=== PATIENT | female | born 1950 | race Caucasian/White ===

== ENCOUNTER 2019-10-26 23:06 | Observation (INO) | payer MEDICARE, MEDICAID, SELFPAY ==
--- NOTE | ~2019-10-26 | XR_ITS ---
EXAMINATION: XR chest 2V EXAM DATE: 10/26/2019 23:41 INDICATION: Chest discomfort, symptoms 1 day. TECHNIQUE: Frontal and lateral projections of the chest obtained and reviewed. Comparison is made to prior examination from 12/01/2018. FINDINGS: Mild hyperinflation. The lungs are clear. There are no pleural effusions. The cardiomedi astinal silhouette is within normal limits. There is no pneumothorax suspected. The bones and soft tissues are unremarkable. There is no significant interval change. IMPRESSION: No acute cardiopulmonary findings. Reviewed, dictated and finalized at location A.
--- NOTE | ~2019-10-26 | CT_ITS ---
EXAMINATION: CTA chest PE protocol DATE: 10/27/2019 11:37 INDICATION: Shortness of breath TECHNIQUE: Computed tomography angiography (CTA) of the chest was performed with 100 mL Omnipaque-350 intravenous contrast timed to evaluate the pulmonary arteries. Coronal maximum intensity projection 3D-reconstructions were created by the technologist. The dose-length product (DLP) was 172.44 mGy-cm. Automated exposure control and iterative reconstruction technique were employed. COMPARISON: 12/01/2018 FINDINGS: The pulmonary arteries are well-opacified. No pulmonary embolism is identified. There are subtle patchy airspace opacities of the right middle and lower lobes. No pleural effusion or pneumoth orax is identified. There has been near complete interval resolution of the previously described 8 mm left lower lobe nodule. No pathologically enlarged thoracic lymph nodes are identified. The heart si ze is normal. The gallbladder is surgically absent. There is moderate thoracic spondylosis. IMPRESSION: 1. No pulmonary embolism. 2. Subtle patchy opacities in the right middle and lower lobes, likely infectious or inflammatory. 3. Near complete interval resolution of the previously described left lower lobe nodule, likely resol ving infection or inflammation. Reviewed, dictated and finalized at location B. IMPRESSION: 1. No pulmonary embolism. 2. Subtle patchy opacities in the right middle and lower lobes, likely infectio us or inflammatory. 3. Near complete interval resolution of the previously described left lower lob e nodule, likely resolving infection or inflammation.
[2019-10-26 23:10] VITALS: BP 163/84; PULSE 68; RESP 20; TEMP 36.4; O2SAT 93
--- NOTE | 2019-10-26 23:13 | ECG_ITS ---
Measurements Intervals [place] Rate: 65 P: 70 [place]: 177 QRS: 69 QRSD: 83 T: 38 QT: 375 QTc: 390 Interpretive Statements SINUS RHYTHM BASELINE ARTIFACT- I, III, AVR, AVL, AVF, V1-V6 BORDERLINE ECG Electronically Signed On 10-27-2019 7:29:12 CDT by Marcos Cabrera D.O.
--- NOTE | 2019-10-26 23:16 | ED.SOB ---
HPI - SOB/Dyspnea General Chief Complaint: Shortness of Breath/Dyspnea Stated Complaint: Feels like something is stuck in chest Time Seen by Provider: 10/26/19 23:13 Source: patient Mode of arrival: EMS Limitations: no limitations History of Present Illness HPI Narrative: 69-year-old woman comes in today complaining of discomfort in her chest which started about 3 hours prior to admission. Patient states that her symptoms have improved somewhat. She states that she felt like she could take a breath in and then when she did she felt like there was something stuck in her chest. She has had no lightheadedness, rapid or irregular heartbeat, nausea, vomiting, sweating, fever, cough, cold symptoms, or leg swelling. Said that she had a similar episode a few weeks ago. Patient states that her doctor prescribed medication for dyslipidemia, diabetes, and COPD but she does not take them because she does not have those illnesses. She states that the diabetic medicines burned out her memory. CTA chest Nov 2018, April 2016, and Dec 2015 all negative for PE. MD elicited complaint: shortness of breath and pain with inspiration Pertinent past history: COPD and diabetes Onset (ago): hour(s) (3) Context: anxiety Timing: constant Severity: moderate Exacerbating factors: nothing Relieving factors: nothing Known history of: COPD and diabetes Associated symptoms: pain with inspiration Treatment prior to arrival: oxygen Related Data Home oxygen amount: none Home Medications Medication Instructions Recorded Confirmed albuterol sulfate 2 puff INHALATION PRN PRN 10/26/19 10/26/19 atorvastatin 20 mg PO DAILY 10/26/19 10/26/19 Allergies Allergy/AdvReac Type Severity Reaction Status Date / Time No Known Allergies Allergy Verified 10/26/19 23:18 Review of Systems Constitutional: Constitutional: Denies chills, Denies fever(s) and Denies weakness Eyes: Eyes: Denies change in vision and Denies photophobia ENT: Denies dysphagia, Denies nasal congestion and Denies sore throat Cardiovascular: Cardiovascular: Reports chest pain, Denies rapid heart rate, Denies radiating jaw, neck or arm pain and Denies slow heart rate Respiratory: Respiratory: Denies cough, Reports dyspnea and Denies wheezing Gastrointestinal: Gastrointestinal: Denies abdominal pain, Denies diarrhea, Denies nausea and Denies vomiting Genitourinary: Genitourinary: Denies nocturia and Denies dysuria Musculoskeletal: Musculoskeletal: Denies arthralgias and Denies joint swelling Integumentary/Breasts: Skin/Breast: Denies pruritus, Denies erythema and Denies rash Neurologic: Denies vertigo, Denies dizziness and Denies syncope Hematologic/Lymphatic: Hematologic/Lymphatic: Denies easy bleeding and Denies easy bruising Allergic/Immunologic: Allergic/Immunologic: Denies lip swelling and Denies wheezing [facility] Past Medical History Medical History (Updated 10/27/19 @ 00:44 by Porter Tripp MD) Atrial fibrillation CVA (cerebral vascular accident) Dyslipidemia H/O squamous cell carcinoma HTN (hypertension) Throat cancer Type 2 diabetes mellitus Surgical History Surgical History H/O: hysterectomy Hx of cholecystectomy Social History Social History Smoking status: Current every day smoker Substance use: never Living arrangements: alone Exam Const: General: healthy appearing, no acute distress and alert Orientation/consciousness: patient oriented x3 Limitations: no limitations HENMT: Head: normal to inspection Ears: external ears normal, TM's normal bilaterally and EAC's normal Face and sinus: normal facial exam Mouth: Yes moist mucous membranes Other: diffuse pharyngeal erythema without mass, exudate or lesion Eyes: Conjunctivae: conjunctivae normal Pupils: Equal, round and reactive pupils present EOM: EOMs intact bilaterally Resp: Eff
[2019-10-26 23:20] VITALS: PULSE 68
[2019-10-26 23:25] VITALS: PULSE 65; RESP 18
[2019-10-26] MEDS: ALBUTEROL SULFATE NEB 2.5 MG/3 ML INH INHALATION (23:33)
[2019-10-26 23:34] VITALS: PULSE 63; RESP 18
[2019-10-26 23:57] VITALS: BP 146/86; PULSE 81; RESP 16; O2SAT 96
[2019-10-27 00:10] LABS: Base Excess ABG -1.3 mmol/L (0-2); HCO3 ABG 22.3 mmol/L (23-29); Oxygen Content ABG 19.9 %vol (16.0-22.0); Oxygen Saturation ABG 98.3 % (95-97); Oxyhemoglobin 92.5 % (94-100); PCO2 ABG 34.5 mmHg (35-45); Total Hemoglobin 15.2 g/dL; pH ABG 7.43 (7.35-7.45)
[2019-10-27 00:14] LABS: Basophils Absolute Auto 0.07 K/mm3 (0.00-0.10); Device ROOM AIR; Eosinophils Absolute Auto 0.23 K/mm3 (0.02-0.50); Eosinophils Percent Auto 3.2 % (1.0-6.0); Hematocrit 23.8 % (35.0-42.0); Immature Granulocyte Absolute 0.01 K/mm3 (0.00-0.00); Immature Granulocyte Percent A 0.1 % (0.0-0.0); Lymphocytes Absolute Auto 2.91 K/mm3 (1.10-4.50); Mean Corpuscular HGB Conc 58.8 g/dL (32.0-36.0); Mean Corpuscular Volume 95.2 fL (78.0-102.0); Mean Platelet Volume 11.1 fl (9.2-11.8); Modified Allen's Test Pass; Monocytes Absolute Auto 0.46 K/mm3 (0.10-0.90); Monocytes Percent Auto 6.5 % (2.0-11.0); Neutrophils Absolute Auto 3.4 K/mm3 (1.7-7.2); Neutrophils Percent Auto 48.2 % (50.0-70.0); Platelet Count Result 192 K/mm3 (150-420); Red Cell Distribution Width 15.1 % (11.6-14.4); Site Drawn RIGHT BRACHIAL; White Blood Count 7.1 K/mm3 (4.8-10.8)
[2019-10-27 00:30] LABS: Add Urine Microscopic? NO; Appearance Urine Clear (Clear); Bilirubin Urine Negative (Negative); Blood Urine Negative (Negative); Color Urine Yellow (Yellow); Glucose Urine UA Negative (Negative); Ketones Urine Negative (Negative); Leukocyte Esterase Ur Negative LEU/UL (Negative); Nitrate Urine Negative (Negative); Protein Urine Negative (Negative); Urobilinogen Urine 0.2 mg/dL (0.2-1.0)
[2019-10-27 00:32] LABS: Alanine Aminotransferase 15 U/L (14-59); Albumin Level 3.5 g/dL (3.4-5.0); Alkaline Phosphatase 111 U/L (46-116); Anion Gap 7 mmol/L (8-16); Aspartate Amino Transferase 10 U/L (15-37); Bilirubin,Total 0.2 mg/dL (0.00-1.00); Blood Urea Nitrogen 12 mg/dL (7-18); Carbon Dioxide 27 mmol/L (21-32); Chloride 102 mmol/L (98-108); Estimated CRCL calculation 41 ml/min; Estimated Glomerular Filt Rate > 60; Glucose 128 mg/dL (70-99); Osmolality Calculated 283 mOsm/kg (285-295); Potassium 3.7 mmol/L (3.5-5.1); Sodium 136 mmol/L (136-145); Total Protein 7.2 g/dL (6.4-8.2)
[2019-10-27 00:33] LABS: D Dimer 1.22 mg/L (0.19-0.50); Troponin I < 0.02 ng/mL (0.00-0.056)
[2019-10-27 00:44] VITALS: BP 117/54; PULSE 61; RESP 20; O2SAT 91
[2019-10-27] MEDS: ASPIRIN 81 MG CHEWABLE TABLET 324 MG PO (00:50)
[2019-10-27 00:51] LABS: BNP < 5 pg/mL (0-100)
[2019-10-27 01:30] VITALS: BP 132/56; PULSE 58; RESP 18; TEMP 36.3; O2SAT 95
--- NOTE | 2019-10-27 01:30 | ADMGEN ---
This patient, Karla Lopez, was admitted to 2nd Floor Room 204-2. Patient oriented to hospital policies and general routines including ID bracelet, bed and alarms, visiting hours, pain management, procedures, bathroom and other care routines, personal items, smoking policy, room service/diet, and visiting hours. Valuables list jeans, t-shirt, yellow jacket, socks, shoes, purse, cell phone. Information on how to activate the Rapid Response Team has been discussed. Patient are encouraged to report perceived risks to care and to ask questions if they do not understand what they are told or what they should do.
[2019-10-27 01:32] VITALS: BMI 19.0
[2019-10-27 06:00] LABS: Alanine Aminotransferase 14 U/L (14-59); Albumin Level 3.1 g/dL (3.4-5.0); Alkaline Phosphatase 98 U/L (46-116); Anion Gap 1 mmol/L (8-16); Aspartate Amino Transferase 13 U/L (15-37); Bilirubin,Total 0.1 mg/dL (0.00-1.00); Blood Urea Nitrogen 8 mg/dL (7-18); Calcium 8.8 mg/dL (8.5-10.1); Carbon Dioxide 33 mmol/L (21-32); Chloride 105 mmol/L (98-108); Estimated CRCL calculation 40 ml/min; Estimated Glomerular Filt Rate > 60; Glucose 98 mg/dL (70-99); Osmolality Calculated 286 mOsm/kg (285-295); Potassium 4.7 mmol/L (3.5-5.1); Sodium 139 mmol/L (136-145); Total Protein 6.5 g/dL (6.4-8.2)
[2019-10-27 06:22] LABS: Basophils Absolute Auto 0.05 K/mm3 (0.00-0.10); Eosinophils Absolute Auto 0.18 K/mm3 (0.02-0.50); Eosinophils Percent Auto 3.6 % (1.0-6.0); Hematocrit 22.6 % (35.0-42.0); Hemoglobin 12.4 g/dL (11.7-13.8); Immature Granulocyte Absolute 0.04 K/mm3 (0.00-0.00); Immature Granulocyte Percent A 0.8 % (0.0-0.0); Lymphocytes Absolute Auto 1.55 K/mm3 (1.10-4.50); Lymphocytes Percent Auto 31.2 % (18.0-42.0); Mean Corpuscular HGB Conc 54.9 g/dL (32.0-36.0); Mean Corpuscular Hemoglobin 53.4 pg (27.0-31.0); Mean Corpuscular Volume 97.4 fL (78.0-102.0); Mean Platelet Volume 11.5 fl (9.2-11.8); Monocytes Absolute Auto 0.36 K/mm3 (0.10-0.90); Monocytes Percent Auto 7.2 % (2.0-11.0); Neutrophils Absolute Auto 2.8 K/mm3 (1.7-7.2); Neutrophils Percent Auto 56.2 % (50.0-70.0); Platelet Count Result 168 K/mm3 (150-420); Red Blood Count 2.32 M/mm3 (4.20-5.40); Red Cell Distribution Width 14.6 % (11.6-14.4)
[2019-10-27 06:41] LABS: Troponin I < 0.02 ng/mL (0.00-0.056)
[2019-10-27 08:00] VITALS: BP 119/66; PULSE 59; RESP 20; TEMP 36.9; O2SAT 95
[2019-10-27] MEDS: ENOXAPARIN 30 MG/0.3 ML SYRINGE SUB-Q (09:05)
[2019-10-27] MEDS: ATORVASTATIN 10 MG TABLET 20 MG PO (09:05)
[2019-10-27 09:24] LABS: Troponin I < 0.02 ng/mL (0.00-0.056)
--- NOTE | 2019-10-27 10:00 | PC.NURSE ---
PT RESTING IN BED. NO DISTRESS NOTED.
--- NOTE | 2019-10-27 10:50 | PC.NURSE ---
BAND SAW OPERATOR CAKE CUTTING SEEING PATIENT IN ROOM.
--- NOTE | 2019-10-27 11:25 | PC.NURSE ---
PT TO CT PER WC.
--- NOTE | 2019-10-27 11:50 | PC.NURSE ---
PT RETURNED TO ROOM PER WC. TO BED. HAS NO COMPLAINTS. REMINDED TO CALL WITH NEEDS.
--- NOTE | 2019-10-27 11:57 | PM.SD ---
Same Day Admit/Disch: HPI History of Present Illness Chief complaint: Feels like something is stuck in chest Narrative: Karla Lopez is a 69 year old female presented to the ED with complaints of chest discomfort and shortness of breath. Patient has a past medical history of A. fib, CVA, dyslipidemia, squamous cell carcinoma, hypertension, throat cancer, type 2 diabetes and COPD. According to the patient yesterday she was sitting at home on her couch and started feeling like her body was not getting enough oxygen with chest discomfort. Patient has been prescribed albuterol but states she does not need it because she does not have COPD. She is a current smoker. Patient blood gas indicated a respiratory alkalosis, her d-dimer was slightly elevated at 1.22, troponin negative x3, chest x-ray unremarkable, blood culture pending, EKG sinus rhythm with a heart rate of 65. Vital signs 132/56, 58, 18, 97.4, 95% on room air. Patient condition has improved since admission. The patient denies SOB, CP, palpitation, extremity numbness, lightheadedness, dizziness, constipation, diarrhea, chills, or fever. This patient agrees that she is ready for discharge and has agreed to follow-up with her primary care physician. [facility] Past Medical History Medical History (Updated 10/27/19 @ 13:38 by MARLEN Cortez) Atrial fibrillation CVA (cerebral vascular accident) Dyslipidemia H/O squamous cell carcinoma HTN (hypertension) Throat cancer Type 2 diabetes mellitus Surgical History Surgical History H/O: hysterectomy Hx of cholecystectomy Social History Social History Smoking packs per day: 1 Smoking cigarettes per day: 20.0 Years smoked: 41 Smoking pack-years: 41.00 Smoking status: Current every day smoker Tobacco type: cigarettes Second hand tobacco smoke exposure: No Alcohol intake: former Substance use: never Living arrangements: alone Gender identity (if verbalized by the patient): Female Sexual Orientation (if Verbalized by the Patient): Straight or Heterosexual Spiritual care concerns: No Same Day Admit/Disch: Med Pre-admit Medications Home Medications Medication Instructions Recorded Confirmed Type albuterol sulfate 2 puff INHALATION PRN PRN 10/26/19 10/26/19 History atorvastatin 20 mg PO DAILY 10/26/19 10/26/19 History Exam Narrative: Exam Narrative: GENERAL: This is a well-nourished, well-developed patient, in no apparent distress. HEAD: normocephalic, atraumatic. EYES: PERRL. Sclera clear/white. Vision is grossly intact. EARS: External ears normal, auditory canals clear and without drainage, TMs normal without perforation. Hearing grossly intact. NOSE: External nose normal with no obvious nasal discharge, nares without redness, no rhinorrhea. THROAT: Mucous membranes moist, posterior pharynx clear. NECK: Neck supple, non-tender without lymphadenopathy, masses or thyromegaly. CARDIOVASCULAR: Regular rate and irregular rhythm RESPIRATORY: Clear to auscultation. Breath sounds equal bilaterally. No wheezes, rales, or rhonchi. GASTROINTESTINAL: Abdomen soft, non-tender, nondistended. Bowel sounds are active. No hepato-splenomegaly, or palpable masses. No guarding. SKIN: warm, intact with no suspicious lesions or rash, good texture and turgor. NEURO: awake, alert, and oriented to person, place and time. There were no obvious focal neurologic abnormalities. Steady gait EXTREMITIES: Normal range of motion. No edema. No calf tenderness. Negative Homans sign bilaterally. BACK: Nontender without deformity or crepitance. No flank tenderness. [place] Coma Scale Eye Opening: Spontaneous 4 Adam Coma Scale Motor: Obeys Commands 6 DS: Data Data Completed and Pending Labs on day of discharge: Labs from last 24 hours 10/27/19 10/27/19 10/27/19 08:48 05:30 05:30 WBC RBC
--- NOTE | 2019-10-27 14:40 | PCDIET ---
DISCHARGE INSTRUCTIONS WITH SCRIPT GIVEN WRITTEN AND VERBALLY. PT STATES SHE UNDERSTANDS INSTRUCTIONS.
--- NOTE | 2019-10-27 14:45 | PC.NURSE ---
PT DISCHARGED TO HOME PER SELF. CHOSE TO WAIT OUTSIDE FOR HER DAUGHTER TO PICK HER UP IN STEAD OF WAITING IN HER ROOM. A&OX3, SKIN INTACT, REMINDED TO OBSERVE IV SITE FOR S/S OF INFECTION FOR 72 HOURS.
== END 2019-10-27 14:45 | disposition home or self-care (01) ==
LOC: CHSED 10-27 00:44 → CHS2ND 10-27 07:13
PROVIDERS: Admitting Provider Emergency Medicine; Emergency Provider Emergency Medicine; PCP Family Medicine; Visit Provider Emergency Medicine
DX: R07.1 Chest pain on breathing (principal); R06.02 Shortness of breath; I48.91 Unspecified atrial fibrillation; J44.9 Chronic obstructive pulmonary disease, unspecified; I10 Essential (primary) hypertension; E78.5 Hyperlipidemia, unspecified; E11.9 Type 2 diabetes mellitus without complications; F17.200 Nicotine dependence, unspecified, uncomplicated; Z86.73 Personal history of transient ischemic attack (TIA), and cerebral infarction without residual deficits; Z85.819 Personal history of malignant neoplasm of unspecified site of lip, oral cavity, and pharynx; Z91.14 Patient's other noncompliance with medication regimen
CPT/HCPCS: 36415; 36600; 71046; 71275; 80053; 81003; 82805; 83880; 84484; 85025; 85380; 85610; 85730; 87040; 93005; 94640; 96372; 99285; A9270; G0378; J1650; Q9965

== ENCOUNTER 2019-12-28 00:30 | Emergency (ER) | payer MEDICARE, SELFPAY ==
[2019-12-28 00:30] VITALS: BP 131/70; PULSE 70; RESP 20; TEMP 36.7; O2SAT 98
--- NOTE | 2019-12-28 00:56 | ED.URI ---
HPI - URI/Sore Throat General Chief Complaint: Upper Respiratory Infection Stated Complaint: Shortness of Breath Source: patient and RN notes reviewed Mode of arrival: ambulatory Limitations: no limitations History of Present Illness MD elicited complaint: sore throat Onset (ago): week(s) (2) Consistency: constant Severity: severe Able to tolerate fluids by mouth: Yes Exacerbating factors: swallowing Relieving factors: nothing Associated symptoms: denies other symptoms Treatments prior to arrival: none Related Data Home Medications Medication Instructions Recorded Confirmed albuterol sulfate 2 puff INHALATION DIRECTED PRN 12/28/19 12/28/19 atorvastatin 20 mg PO DAILY 12/28/19 12/28/19 Allergies Allergy/AdvReac Type Severity Reaction Status Date / Time No Known Allergies Allergy Verified 12/28/19 01:20 Review of Systems Review of Systems: All systems reviewed & are unremarkable except as noted in HPI and below PMFSH Past Medical History Medical History (Updated 12/28/19 @ 03:26 by Giovanni Lloyd MD) Hyperlipidemia Surgical History Surgical History (Updated 12/28/19 @ 00:58 by Giovanni Lloyd MD) History of throat surgery Social History Social History (Updated 12/28/19 @ 00:57 by Giovanni Lloyd MD) Smoking packs per day: 1 Smoking cigarettes per day: 20.0 Smoking status: Current every day smoker Tobacco type: cigarettes Alcohol intake: current Substance use: never Exam Const: General: healthy appearing and no acute distress Nutritional Appearance: well nourished and thin Orientation/consciousness: patient oriented x3 HENMT: Head: normal to inspection Ears: external ears normal General nose exam: Normal external nose present Face and sinus: normal facial exam Mouth: Yes tongue normal, Yes dry mucous membranes, Yes lip abnormal and Yes muffled voice (hoarse voice) Throat: uvula midline, posterior oropharynx abnormal no exudates, no lacerations and no foreign body and no uvular edema Eyes: Conjunctivae: conjunctivae normal Pupils: Equal, round and reactive pupils present EOM: EOMs intact bilaterally Neck: Neck: normal visual inspection and no lymphadenopathy Resp: Effort & Inspection: normal respiratory effort Auscultation: clear to auscultation bilaterally Cardio: Rate: regular rate Rhythm: regular rhythm GI: GI Palp: Yes Soft to palpation and No Tenderness to palpation present (GI) Auscultation: normal bowel sounds Back/Spine/Pelvis: Cervical Spine: cervical ROM normal Thoracic/Lumbar Spine: thoraco-lumbar ROM normal Skin: General skin exam: normal color Rashes: no rashes Neuro: General: patient oriented x3 and moves all extremities Speech: normal speech Gait exam (Neuro): Normal gait present Extrem: General: normal to inspection and no clubbing, cyanosis or edema Psych: Appearance: grossly normal and well kempt Mental Status: mental status grossly normal Affect: normal affect Attitude: cooperative Thought content: Yes Normal thought content present Course Course Emergency Course: Patient feels better after the Maalox. Vital Signs Vital signs: Vital Signs Temperature 36.7 C 12/28/19 00:30 Pulse Rate 70 12/28/19 00:30 Respiratory Rate 20 12/28/19 00:30 Blood Pressure 131/70 12/28/19 00:30 Pulse Oximetry 98 12/28/19 00:30 Temperature 36.5 C 12/28/19 03:30 Pulse Rate 84 12/28/19 03:30 Respiratory Rate 20 12/28/19 03:30 Blood Pressure 125/88 12/28/19 03:30 Pulse Oximetry 97 12/28/19 03:30 Discharge Plan Discharge Clinical Impression: Throat pain Patient Disposition: Home, Self-Care Condition: Stable Instructions: Pharyngitis (ED) Additional Instructions: Use Maalox [id number]. Follow-up the primary care physician to see if they want to take a closer look your throat. Recommend stop smoking Prescriptions: No Action atorvastatin 20 mg tablet 20 mg PO DAILY RF: 0 albuterol
--- NOTE | 2019-12-28 01:29 | PC.NURSE ---
Patient watching television, lights dimmed per patients request.
[2019-12-28] MEDS: MAG HYDROX/AL HYDROX/SIMETH 30 ML UDC PO (01:32)
--- NOTE | 2019-12-28 02:07 | PC.NURSE ---
0130 water given to pt. pt continuously attempting to clear throat. state has not seen dr ferraro who did tumor removal to throat in years. 0207pt resting per cot, no complaints voiced at this time. warm blanket given earlier.
--- NOTE | 2019-12-28 02:18 | PC.NURSE ---
pt no longer attempting to clear throat after medication given.
--- NOTE | 2019-12-28 02:34 | PC.NURSE ---
pt up and ambulated to bathroom without difficulty. pt dressed and requesting daughter to be called to go home. erp notified of same.
[2019-12-28 03:30] VITALS: BP 125/88; PULSE 84; RESP 20; TEMP 36.5; O2SAT 97
== END 2019-12-28 03:30 | disposition home or self-care (01) ==
PROVIDERS: Emergency Provider Emergency Medicine; PCP Family Medicine
DX: R07.0 Pain in throat (principal)
CPT/HCPCS: 99282; 99283; A9270

== ENCOUNTER 2020-02-11 20:13 | Emergency (ER) | payer MEDICARE, MEDICAID, SELFPAY ==
[2020-02-11] VITALS (19 sets, daily range): BP systolic 133–168; BP diastolic 59–79; PULSE 58–78; RESP 14–30; TEMP 37.1; O2SAT 95–100
--- NOTE | ~2020-02-11 | CT_ITS ---
EXAMINATION: CTA chest PE protocol EXAM DATE: 02/12/2020 00:18 INDICATION: D Dimer high, shortness of breath. TECHNIQUE: Spiral CTA of the chest (pulmonary arteries) was performed with 100 cc Omnipaque 350 intr avenous contrast injection. Images were acquired during the pulmonary arterial phase. Coronal maxi mum intensity projection 3D-reconstructions were created by the technologist on dedicated workstation . Axial, coronal and sagittal reformatted images were reviewed. The dose-length product (DLP) for t his examination was 124.35 mGy-cm. The exposure was tailored according to patient size (auto mA exp osure control), and iterative reconstruction (ASIR) was used as additional dose reduction technique. Comparison is made to prior examination from 10/27/2019. FINDINGS: Pulmonary arteries are well opacified and without intraluminal filling defects. No thora cic aortic dissection. There is mild emphysema and moderate hyperinflation. Small left lingular post infectious residua. There are no pleural or pericardial effusions. Tracheobronchial tree is patent . There is no mediastinal, hilar or axillary lymphadenopathy. There is no pneumothorax. Heart n ormal in size. There is mild coronary arterial calcification, arterial sclerosis. Upper abdomen is unremarkable. There is thoracic spondylosis without osteoblastic or osteolytic lesions identified. IMPRESSION: 1. No pulmonary emboli or acute cardiopulmonary findings. 2. Emphysema and hyperinflation. Reviewed, dictated and finalized at location A. RAL CARGO CLERK
--- NOTE | ~2020-02-11 | XR_ITS ---
EXAMINATION: XR chest 1V portable EXAM DATE: 02/11/2020 22:31 INDICATION: Shortness of breath, elevated d-dimer. TECHNIQUE: Portable AP frontal chest x-ray was obtained. Comparison is made to prior examination from 10/26/2019. FINDINGS: The lungs are clear. Moderate hyperinflation. There are no pleural effusions. The cardiome diastinal silhouette is within normal limits. There is no pneumothorax suspected. The bones and sof t tissues are unremarkable. IMPRESSION: 1. No acute cardiopulmonary findings. 2. Hyperinflation. Reviewed, dictated and finalized at location A. OMIST RESEARCH ASSISTANT
--- NOTE | 2020-02-11 21:55 | ECG_ITS ---
Measurements Intervals [place] Rate: 59 P: 77 [place]: 178 QRS: 67 QRSD: 87 T: 56 QT: 395 QTc: 393 Interpretive Statements SINUS BRADYCARDIA BASELINE WANDER- V3-V4 BORDERLINE ECG Electronically Signed On 02-12-2020 14:21:12 HEAVY DUTY PRESS OPERATOR by Marcos Cabrera D.O.
[2020-02-11] MEDS: methylPREDNISolone SOD SUCC 125 MG VIAL IV PUSH (22:58)
[2020-02-11] MEDS: ALBUTEROL SULFATE (*SP) INHALER 6 PUFF INHALATION (22:58)
[2020-02-11 23:00] LABS: Basophils Absolute Auto 0.05 K/mm3 (0.00-0.10); Basophils Percent Auto 0.8 % (0.0-1.0); Eosinophils Absolute Auto 0.13 K/mm3 (0.02-0.50); Eosinophils Percent Auto 2.2 % (1.0-6.0); Hematocrit 30.1 % (35.0-42.0); Hemoglobin 12.8 g/dL (11.7-13.8); Immature Granulocyte Absolute 0.02 K/mm3 (0.00-0.00); Immature Granulocyte Percent A 0.3 % (0.0-0.0); Lymphocytes Absolute Auto 1.75 K/mm3 (1.10-4.50); Lymphocytes Percent Auto 29.6 % (18.0-42.0); Mean Corpuscular HGB Conc 42.5 g/dL (32.0-36.0); Mean Corpuscular Volume 96.5 fL (78.0-102.0); Mean Platelet Volume 10.8 fl (9.2-11.8); Monocytes Absolute Auto 0.39 K/mm3 (0.10-0.90); Monocytes Percent Auto 6.6 % (2.0-11.0); Neutrophils Absolute Auto 3.6 K/mm3 (1.7-7.2); Neutrophils Percent Auto 60.5 % (50.0-70.0); Platelet Count Result 205 K/mm3 (150-420); Red Blood Count 3.12 M/mm3 (4.20-5.40); Red Cell Distribution Width 14.6 % (11.6-14.4); White Blood Count 5.9 K/mm3 (4.8-10.8)
--- NOTE | 2020-02-11 23:23 | ED.SOB ---
HPI - SOB/Dyspnea General Source: patient Mode of arrival: ambulatory Limitations: no limitations History of Present Illness HPI Narrative: Patient states she has been chronically short of breath for many months. This is moderately severe, ongoing, not relieved by measures taken at home. She has continued to smoke. MD elicited complaint: shortness of breath Pertinent past history: COPD Severity: moderate Exacerbating factors: exertion Relieving factors: nothing Known history of: COPD Associated symptoms: denies other symptoms Related Data Home oxygen amount: none Home Medications Medication Instructions Recorded Confirmed atorvastatin 20 mg PO DAILY 10/26/19 02/11/20 budesonide-formoterol [Symbicort] 2 puff INHALATION DAILY 02/11/20 02/11/20 Allergies Allergy/AdvReac Type Severity Reaction Status Date / Time No Known Allergies Allergy Verified 10/26/19 23:18 Review of Systems Constitutional: Constitutional: Reports no additional constitutional complaints Eyes: Eyes: Reports no additional eye complaints ENT: Reports system reviewed and no additional complaints, except as documented Cardiovascular: Cardiovascular: Reports no additional cardiovascular complaints Respiratory: Respiratory: Reports no additional respiratory complaints Gastrointestinal: Gastrointestinal: Reports no additional gastrointestinal complaints Genitourinary: Genitourinary: Reports no additional female genitourinary complaints Musculoskeletal: Musculoskeletal: Reports no additional musculoskeletal complaints Integumentary/Breasts: Skin/Breast: Reports system reviewed and no additional complaints, except as docu Neurologic: Reports system reviewed and no additional complaints, except as documented Psychiatric: Psychiatric: Reports no additional psychiatric complaints Endocrine: Endocrine: Reports no additional endocrine complaints Hematologic/Lymphatic: Hematologic/Lymphatic: Reports no additional hematologic/lymphatic complaints Allergic/Immunologic: Allergic/Immunologic: Reports no additional allergic/immunologic complaints [facility] Past Medical History Medical History Atrial fibrillation CVA (cerebral vascular accident) Dyslipidemia H/O squamous cell carcinoma HTN (hypertension) Throat cancer Type 2 diabetes mellitus Surgical History Surgical History H/O: hysterectomy Hx of cholecystectomy Social History Social History Smoking packs per day: 1 Smoking cigarettes per day: 20.0 Years smoked: 41 Smoking pack-years: 41.00 Smoking status: Current every day smoker Tobacco type: cigarettes Second hand tobacco smoke exposure: No Alcohol intake: former Substance use: never Gender identity (if verbalized by the patient): Female Spiritual care concerns: No Exam Const: General: no acute distress Nutritional Appearance: thin Orientation/consciousness: patient oriented x3 Other: She appears to have COPD HENMT: Head: normal to inspection Ears: TM's normal bilaterally General nose exam: Normal nares present Face and sinus: normal facial exam Mouth: Yes moist mucous membranes Throat: posterior oropharynx normal Eyes: Conjunctivae: conjunctivae normal Neck: Neck: normal visual inspection Chest: Chest palpation & inspection: normal inspection of the chest Resp: Effort & Inspection: normal respiratory effort Auscultation: diminished lung sounds Cardio: Rate: regular rate Rhythm: regular rhythm GI: GI Palp: Yes Soft to palpation Other: nontender Skin: General skin exam: normal color Neuro: General: patient oriented x3 Extrem: General: normal to inspection Psych: Mental Status: mental status grossly normal Course Course Emergency Course: Labs, CXR, EKG were all reviewed with the patient. She was discharged with a script for albuterol,
[2020-02-11 23:26] LABS: Alanine Aminotransferase 22 U/L (14-59); Albumin Level 3.4 g/dL (3.4-5.0); Alkaline Phosphatase 96 U/L (46-116); Anion Gap 0 mmol/L (8-16); Aspartate Amino Transferase 16 U/L (15-37); Bilirubin,Total 0.3 mg/dL (0.00-1.00); Blood Urea Nitrogen 4 mg/dL (7-18); Calcium 8.9 mg/dL (8.5-10.1); Carbon Dioxide 34 mmol/L (21-32); Chloride 101 mmol/L (98-108); Estimated CRCL calculation 43 ml/min; Estimated Glomerular Filt Rate > 60; Glucose 115 mg/dL (70-99); Osmolality Calculated 277 mOsm/kg (285-295); Potassium 5.6 mmol/L (3.5-5.1); Sodium 135 mmol/L (136-145); Total Protein 7.2 g/dL (6.4-8.2); Troponin I 9.6 ng/L (0.00-60.4)
[2020-02-11 23:30] LABS: D Dimer 1.44 mg/L (0.19-0.50)
[2020-02-11 23:53] LABS: BNP 14.5 pg/mL (0-100)
[2020-02-12 00:56] VITALS: O2SAT 98
[2020-02-12 00:57] VITALS: BP 156/73
[2020-02-12 00:59] VITALS: PULSE 62; RESP 20; O2SAT 98
== END 2020-02-12 01:09 | disposition home or self-care (01) ==
PROVIDERS: Emergency Provider Emergency Medicine; PCP Family Medicine
DX: J44.1 Chronic obstructive pulmonary disease with (acute) exacerbation (principal); I48.91 Unspecified atrial fibrillation; E78.5 Hyperlipidemia, unspecified; I10 Essential (primary) hypertension; E11.9 Type 2 diabetes mellitus without complications; F17.200 Nicotine dependence, unspecified, uncomplicated
CPT/HCPCS: 36415; 71045; 71275; 80053; 83880; 84484; 85025; 85380; 93005; 96374; 99283; 99284; A9270; J2930; Q9965; Q9967

== ENCOUNTER 2020-11-03 10:50 | Outpatient (CLI) | payer MEDICARE, MEDICAID, SELFPAY ==
[2020-11-03 11:23] LABS: Hemoglobin A1C 6.4 % (<5.7)
[2020-11-07 07:33] LABS: Cortisol Random 12.9 mcg/dL (***)
== END 2020-11-03 10:51 | disposition home or self-care (01) ==
PROVIDERS: PCP Family Medicine; Visit Provider Internal Medicine Hematology & Oncology
DX: C32.9 Malignant neoplasm of larynx, unspecified (principal); E11.9 Type 2 diabetes mellitus without complications
CPT/HCPCS: 36415; 82533; 83036

== ENCOUNTER 2020-11-24 12:10 | Outpatient (CLI) | payer MEDICARE, SELFPAY ==
[2020-11-24 13:05] LABS: Basophils Absolute Auto 0.04 K/mm3 (0.00-0.10); Basophils Percent Auto 0.6 % (0.0-1.0); Eosinophils Absolute Auto 0.15 K/mm3 (0.02-0.50); Eosinophils Percent Auto 2.4 % (1.0-6.0); Hematocrit 35.8 % (35.0-42.0); Hemoglobin 12.2 g/dL (11.7-13.8); Immature Granulocyte Absolute 0.06 K/mm3 (0.00-0.00); Lymphocytes Absolute Auto 1.63 K/mm3 (1.10-4.50); Lymphocytes Percent Auto 26.3 % (18.0-42.0); Mean Corpuscular HGB Conc 34.1 g/dL (32.0-36.0); Mean Corpuscular Hemoglobin 29.3 pg (27.0-31.0); Mean Corpuscular Volume 86.1 fL (78.0-102.0); Mean Platelet Volume 10.4 fl (9.2-11.8); Monocytes Percent Auto 6.5 % (2.0-11.0); Neutrophils Absolute Auto 3.9 K/mm3 (1.7-7.2); Neutrophils Percent Auto 63.2 % (50.0-70.0); Platelet Count Result 266 K/mm3 (150-420); Red Blood Count 4.16 M/mm3 (4.20-5.40); Red Cell Distribution Width 18.6 % (11.6-14.4); White Blood Count 6.2 K/mm3 (4.8-10.8)
[2020-11-24 13:08] LABS: Alanine Aminotransferase 15 U/L (14-59); Alkaline Phosphatase 114 U/L (46-116); Anion Gap 8 mmol/L (8-16); Aspartate Amino Transferase 10 U/L (15-37); Bilirubin,Total 0.2 mg/dL (0.00-1.00); Blood Urea Nitrogen 6 mg/dL (7-18); Calcium 8.8 mg/dL (8.5-10.1); Carbon Dioxide 31 mmol/L (21-32); Chloride 103 mmol/L (98-108); Estimated Glomerular Filt Rate 59; Glucose 186 mg/dL (70-99); Osmolality Calculated 296 mOsm/kg (285-295); Potassium 3.7 mmol/L (3.5-5.1); Sodium 142 mmol/L (136-145); Thyroid Stimulating Hormone 2.23 uIU/mL (0.36-3.74); Total Protein 6.7 g/dL (6.4-8.2)
== END 2020-11-24 12:11 | disposition home or self-care (01) ==
LOC: CHSLAB 12:11
PROVIDERS: PCP Family Medicine; Visit Provider Internal Medicine Hematology & Oncology
DX: C32.9 Malignant neoplasm of larynx, unspecified (principal); E11.9 Type 2 diabetes mellitus without complications
CPT/HCPCS: 36415; 80053; 82533; 84443; 85025

== ENCOUNTER 2020-11-27 13:11 | Outpatient (CLI) | payer MEDICARE, SELFPAY ==
[2020-11-27 13:32] VITALS: BP 130/68; PULSE 80; RESP 14; TEMP 36.2; O2SAT 97
[2020-11-27 13:33] VITALS: BMI 19.5
--- NOTE | 2020-11-27 14:19 | PC.NURSE ---
Patient here for cycle 1 every 4 weeks Opdivo chemo therapy. Education on medication given verbally and written. Patient has palliative care specialist with her for support person. Labs reviewed from 11/24/20 and ok'd. Opdivo administered via patent port See MAR. Tolerated well. Safe exit of hospital will return 2020 1330 for next.
[2020-11-27] MEDS: HEPARIN SODIUM LOCK FLUSH 500 UNITS/5 ML SYRINGE IV PUSH (14:24)
[2020-11-27 14:37] VITALS: BP 128/61; PULSE 68; RESP 14; O2SAT 96
== END 2020-11-27 13:12 | disposition home or self-care (01) ==
LOC: CHSTREATRM 13:12
PROVIDERS: PCP Family Medicine; Visit Provider Internal Medicine Hematology & Oncology
DX: Z51.11 Encounter for antineoplastic chemotherapy (principal); C32.9 Malignant neoplasm of larynx, unspecified
CPT/HCPCS: 96413; J9299

== ENCOUNTER 2020-12-01 14:23 | Outpatient (CLI) | payer MEDICARE, SELFPAY ==
--- NOTE | ~2020-12-01 | XR_ITS ---
EXAMINATION: XR shoulder LT min 2V DATE: 12/01/2020 14:50 INDICATION: Left shoulder pain TECHNIQUE: AP internally and externally rotated, AP oblique externally rotated and transscapular Y vi ews of the left shoulder were obtained. COMPARISON: None FINDINGS: Normal alignment. There is a subtle nondisplaced intra-articular fracture of the left humeral head wi th linear lucency extending to a 1 mm fracture gap at the articular cortex at the posterior aspect of the humeral head on the transscapular Y view and 1 mm step-off at the medial cortex on the Grashey v iew. The Grashey view there is suggestion of underlying lytic lesion which raises concern for maligna ncy and pathologic fracture. Mild left glenohumeral osteoarthritis. Mild acromioclavicular osteoarthr itis. Visualized portions of the lungs are clear. Tip of a right internal jugular central venous cath eter near the superior cavoatrial junction. IMPRESSION: Nondisplaced intra-articular fracture involving the posterior medial aspect of the left humeral head. Suggestion of a possible underlying lytic lesion raising concern for pathologic fracture. Correlate for clinical history of malignancy and could consider further evaluation with contrast-enhanced MRI a s clinically indicated. Reviewed, dictated and finalized at location A. IMPRESSION: Nondisplaced intra-articular fracture involving the posterior medial aspect of the left humeral head. Suggestion of a possible underlying lytic lesion raising concern for pathologic fracture. Correlate for clinical history of malignancy and could consider further evaluation with contrast-enhanced MRI as clinically indicated.
--- NOTE | ~2020-12-01 | XR_ITS ---
EXAMINATION: XR elbow LT min 3V DATE: 12/01/2020 14:50 INDICATION: Left elbow pain TECHNIQUE: Anteroposterior, two oblique and lateral views of the left elbow were obtained. COMPARISON: None. FINDINGS: Alignment is normal at the left elbow. No fracture or joint effusion. Mild osteoarthritis involving a ll 3 compartments of the left elbow with mild nonuniform joint space narrowing and small marginal ost eophytes. Soft tissues are unremarkable. IMPRESSION: 1. Mild osteoarthritis of the left elbow. No joint effusion or acute osseous abnormality. Reviewed, dictated and finalized at location A. IMPRESSION: 1. Mild osteoarthritis of the left elbow. No joint effusion or acute osseous ab normality.
== END 2020-12-01 14:24 | disposition home or self-care (01) ==
PROVIDERS: PCP Family Medicine; Visit Provider Physician Assistant
DX: M25.512 Pain in left shoulder (principal); M25.522 Pain in left elbow
CPT/HCPCS: 73030; 73080

== ENCOUNTER 2020-12-22 11:01 | Outpatient (CLI) | payer MEDICARE, SELFPAY ==
[2020-12-22 11:38] LABS: Hemoglobin A1C 6.4 % (<5.7)
[2020-12-22 11:47] LABS: Basophils Absolute Auto 0.06 K/mm3 (0.00-0.10); Basophils Percent Auto 1.4 % (0.0-1.0); Eosinophils Absolute Auto 0.27 K/mm3 (0.02-0.50); Eosinophils Percent Auto 6.1 % (1.0-6.0); Hemoglobin 12.6 g/dL (11.7-13.8); Immature Granulocyte Absolute 0.01 K/mm3 (0.00-0.00); Immature Granulocyte Percent A 0.2 % (0.0-0.0); Lymphocytes Absolute Auto 1.56 K/mm3 (1.10-4.50); Lymphocytes Percent Auto 35.1 % (18.0-42.0); Mean Corpuscular HGB Conc 32.3 g/dL (32.0-36.0); Mean Corpuscular Volume 80.6 fL (78.0-102.0); Neutrophils Absolute Auto 2.1 K/mm3 (1.7-7.2); Neutrophils Percent Auto 48.2 % (50.0-70.0); Platelet Count Result 285 K/mm3 (150-420); Red Blood Count 4.84 M/mm3 (4.20-5.40); White Blood Count 4.4 K/mm3 (4.8-10.8)
[2020-12-22 12:33] LABS: Alanine Aminotransferase 17 U/L (14-59); Albumin Level 3.6 g/dL (3.4-5.0); Alkaline Phosphatase 151 U/L (46-116); Anion Gap 6 mmol/L (8-16); Aspartate Amino Transferase 14 U/L (15-37); Bilirubin,Total 0.3 mg/dL (0.00-1.00); Blood Urea Nitrogen 5 mg/dL (7-18); Calcium 9.3 mg/dL (8.5-10.1); Carbon Dioxide 31 mmol/L (21-32); Chloride 103 mmol/L (98-108); Estimated Glomerular Filt Rate > 60; Glucose 103 mg/dL (70-99); Osmolality Calculated 287 mOsm/kg (285-295); Potassium 5.5 mmol/L (3.5-5.1); Sodium 140 mmol/L (136-145)
[2020-12-26 07:28] LABS: Cortisol Random 10.1 mcg/dL (***)
== END 2020-12-22 11:02 | disposition home or self-care (01) ==
LOC: CHSLAB 11:04
PROVIDERS: PCP Family Medicine; Visit Provider Internal Medicine Hematology & Oncology
DX: C32.9 Malignant neoplasm of larynx, unspecified (principal); R73.09 Other abnormal glucose
CPT/HCPCS: 36415; 80053; 82533; 83036; 85025

== ENCOUNTER 2020-12-25 13:34 | Outpatient (CLI) | payer MEDICARE, SELFPAY ==
[2020-12-25 13:44] VITALS: BMI 20.7
--- NOTE | 2020-12-25 13:45 | PC.NURSE ---
[facility], accompanied by friend. A&Ox3. 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 Pt able to communicate via white board. Oriented to room. Call smith in reach. Reminded to call with needs.
[2020-12-25 13:53] VITALS: BP 184/71; PULSE 64; RESP 20; TEMP 36.6; O2SAT 94
--- NOTE | 2020-12-25 14:44 | PC.NURSE ---
Opdivo infused as ordered. Pt tolerated well. Has no complaints. Port flushed and de accessed per protocol. Pt discharged to home amb with friend.
== END 2020-12-25 13:35 | disposition home or self-care (01) ==
PROVIDERS: PCP Family Medicine; Visit Provider Internal Medicine Hematology & Oncology
DX: Z51.11 Encounter for antineoplastic chemotherapy (principal); C32.9 Malignant neoplasm of larynx, unspecified
CPT/HCPCS: 96413; J9299

== ENCOUNTER 2021-01-19 12:23 | Outpatient (CLI) | payer MEDICARE, SELFPAY ==
[2021-01-19 13:19] LABS: Basophils Absolute Auto 0.04 K/mm3 (0.00-0.10); Basophils Percent Auto 0.9 % (0.0-1.0); Eosinophils Absolute Auto 0.24 K/mm3 (0.02-0.50); Eosinophils Percent Auto 5.7 % (1.0-6.0); Hematocrit 37.2 % (35.0-42.0); Hemoglobin 12.3 g/dL (11.7-13.8); Immature Granulocyte Absolute 0.01 K/mm3 (0.00-0.00); Immature Granulocyte Percent A 0.2 % (0.0-0.0); Lymphocytes Absolute Auto 1.23 K/mm3 (1.10-4.50); Lymphocytes Percent Auto 29.1 % (18.0-42.0); Mean Corpuscular HGB Conc 33.1 g/dL (32.0-36.0); Mean Corpuscular Hemoglobin 28.1 pg (27.0-31.0); Mean Corpuscular Volume 85.1 fL (78.0-102.0); Mean Platelet Volume 10.8 fl (9.2-11.8); Monocytes Absolute Auto 0.38 K/mm3 (0.10-0.90); Neutrophils Absolute Auto 2.3 K/mm3 (1.7-7.2); Neutrophils Percent Auto 55.1 % (50.0-70.0); Platelet Count Result 279 K/mm3 (150-420); Red Blood Count 4.37 M/mm3 (4.20-5.40); Red Cell Distribution Width 15.6 % (11.6-14.4); White Blood Count 4.2 K/mm3 (4.8-10.8)
[2021-01-19 14:01] LABS: Alanine Aminotransferase 15 U/L (14-59); Albumin Level 3.2 g/dL (3.4-5.0); Alkaline Phosphatase 127 U/L (46-116); Anion Gap 7 mmol/L (8-16); Aspartate Amino Transferase 12 U/L (15-37); Bilirubin,Total 0.2 mg/dL (0.00-1.00); Blood Urea Nitrogen 6 mg/dL (7-18); Calcium 8.8 mg/dL (8.5-10.1); Carbon Dioxide 31 mmol/L (21-32); Chloride 103 mmol/L (98-108); Estimated Glomerular Filt Rate > 60; Glucose 123 mg/dL (70-99); Osmolality Calculated 290 mOsm/kg (285-295); Potassium 5.2 mmol/L (3.5-5.1); Sodium 141 mmol/L (136-145); Total Protein 6.7 g/dL (6.4-8.2)
[2021-01-19 14:03] LABS: Free T4 Free Thyroxine Reflex 1.01 ng/dL (0.76-1.46); Thyroid Stimulating Hormone Reflex 0.03 u/IU/mL (0.36-3.74)
[2021-01-23 12:53] LABS: Cortisol Random 8.5 mcg/dL (***)
== END 2021-01-19 12:24 | disposition home or self-care (01) ==
PROVIDERS: PCP Family Medicine; Visit Provider Internal Medicine Hematology & Oncology
DX: C32.9 Malignant neoplasm of larynx, unspecified (principal); Z79.899 Other long term (current) drug therapy
CPT/HCPCS: 36415; 80053; 82533; 84439; 84443; 85025

== ENCOUNTER 2021-01-22 13:21 | Outpatient (CLI) | payer MEDICARE, SELFPAY ==
[2021-01-22 13:36] VITALS: BMI 20.7
[2021-01-22 13:38] VITALS: BP 132/70; PULSE 78; RESP 14; TEMP 36.6; O2SAT 96
--- NOTE | 2021-01-22 14:35 | PC.NURSE ---
Patient here for Cycle 3 chemo Nivolumab. No concerns voiced. Reports been doing ok. Education on chemo regimen given. IV Nivolumab administered via patent port. Tolerated well. Safe exit of hospital. Will return Feb.[id number] for cycle 4 if ordered.
== END 2021-01-22 13:22 | disposition home or self-care (01) ==
PROVIDERS: PCP Family Medicine; Visit Provider Internal Medicine Hematology & Oncology
DX: Z51.11 Encounter for antineoplastic chemotherapy (principal); C32.9 Malignant neoplasm of larynx, unspecified
CPT/HCPCS: 96413; J9299

== ENCOUNTER 2021-02-23 13:24 | Outpatient (CLI) | payer MEDICARE, MEDICAID, SELFPAY ==
[2021-02-23 13:43] VITALS: BP 130/71; PULSE 80; RESP 14; TEMP 36.6; O2SAT 97; BMI 20.2
[2021-02-23 14:26] VITALS: BP 128/74; PULSE 68; RESP 16; TEMP 36.4; O2SAT 97
--- NOTE | 2021-02-23 14:28 | PC.NURSE ---
Patient here for # 4 monthly Opdivo IV chemo. Medications reviewed with patient. No concerns. IV Opdivo administered via patent port a cath. Tolerated well. Safe exit of hospital. Will return Mar 23, 2021 at 1300 for #5.
== END 2021-02-23 13:25 | disposition home or self-care (01) ==
LOC: CHSTREATRM 13:28
PROVIDERS: PCP Family Medicine; Visit Provider Internal Medicine Hematology & Oncology
DX: Z51.11 Encounter for antineoplastic chemotherapy (principal); C32.9 Malignant neoplasm of larynx, unspecified
CPT/HCPCS: 96413; J9299

== ENCOUNTER 2024-03-24 22:37 | Emergency (ER) | payer MEDICARE, MEDICAID, SELFPAY ==
--- NOTE | ~2024-03-24 | CT_ITS ---
Clinical Indication: Epigastric pain CT Scan of the Chest, Abdomen, and Pelvis with Contrast: Technique: Contiguous sections were acquired throughout the chest, abdomen, and pelvis after intraven ous administration of 100 cc of Omnipaque 350. Dose reduction technique was used on this scan by tiarra parra automated exposure control and iterative reconstruction technique. The dose-length product (DL P) was 722.59 mGy-cm. Findings: There is no evidence of any significant mediastinal, hilar or axillary lymphadenopathy. The mediastin al soft tissues and vascular structures appear normal. Tracheostomy cannula in place. There is no evidence of pleural or pericardial effusion. There are a few focal peripheral groundglass opacities, for example anterior left upper lobe and the peripheral right lung base. There is diffuse hepatic steatosis. Cholecystectomy clips are present. The spleen, pancreas, adrenals and kidneys are within normal limits. There are atherosclerotic calcifications of the aorta. No lym phadenopathy. No bowel obstruction or bowel wall thickening. There is no evidence to suggest acute appendicitis. Urinary bladder is unremarkable. No pelvic mass seen. Status post hysterectomy. No ascites. There is mild chronic L1 compression deformity. Impression: A few focal peripheral groundglass opacity lungs could reflect atelectatic change versus areas of foc al pneumonitis. Correlate clinically. Diffuse hepatic steatosis. Reviewed, dictated and finalized at [facility]. MACHINIST Impression: A few focal peripheral groundglass opacity lungs could reflect atelectatic lyn ge versus areas of focal pneumonitis. Correlate clinically. Diffuse hepatic steatosis.
[2024-03-24 22:37] VITALS: PULSE 81; O2SAT 100
--- OUTSIDE RECORDS SUMMARY | 2024-03-24 22:40 | XMS_ITS | Clinical Summary ---
Author Organization [facility] Address [address] [place] [address] Care Team Providers Care Information Analyst Name Role Phone Brandt Rosas MD Unavailable [phone] Jayson Lake MD Primary Care Provider [phone] Allergies No known active allergies Medications albuterol (2.5 MG/3ML) 0.083% nebulizer solution 1 Active albuterol sulfate HFA 108 (90 Base) MCG/ACT inhaler Inhale 1 puff into the lungs every 6 (six) hours as needed for Wheezing. Active mirtazapine 15 MG tablet Take 1 tablet (15 mg total) by mouth daily. 1 Active atorvastatin (LIPITOR) 20 MG tablet Take 1 tablet (20 mg total) by mouth daily. 4 Active levothyroxine (SYNTHROID) 125 MCG tablet Take 1 tablet (125 mcg total) by mouth. 4 Active omeprazole (PRILOSEC) 20 MG capsule Take 1 capsule (20 mg total) by mouth daily. 4 Active amoxicillin-cla vulanate (AUGMENTIN) 875-125 MG tablet Take 1 tablet (875 mg total) by mouth every 12 (twelve) hours for 10 days. 20 tablet 5 025 Active predniSONE (DELTASONE) 20 MG tablet Take 2 tablets (40 mg total) by mouth daily for 10 days. 20 tablet 5 025 Active traMADol (ULTRAM) 50 MG tabletIndicatio ns:Acute Pain < 7 Day Supply Indications: Acute Pain < 7 Day Supply 1-2 tabs po q6 hours prn pain 12 tablet 5 Active azithromycin (ZITHROMAX) 250 MG tablet Take 2 tablets by mouth on day one then 1 daily for four days. 6 tablet 5 025 Active famotidine 20 MG tabletIndicatio ns:Acid Indigestion Take 1 tablet (20 mg total) by mouth 2 (two) times daily. Indications: Acid Indigestion 1 025 Discontin ued(Error ) sucralfate (CARAFATE) 1 G tablet 4 025 Discontin ued(Error ) traMADol (ULTRAM) 50 MG tablet Take 1 tablet (50 mg total) by mouth. 4 025 Discontin ued(Stop Taking at Discharge ) azithromycin (ZITHROMAX) 250 MG tablet Take 2 tablets by mouth on day one then 1 daily for four days. 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 Malfunction of percutaneous endoscopic gastrostomy (PEG) tube ([facility]) 03/27/2020 Acute exacerbation of chroni c obstructive pulmonary disease (COPD) ([facility]) 01/09/2020 Lab test negative for COVID-19 virus 12/30/2019 CAP (community acquired pneumonia) 12/29/2019 Hyponatremia 12/29/2019 Bronchopneumonia 08/09/2019 Atherosclerosis of abdominal aorta 08/09/2019 Smoker unmotivated to quit Emphysema of lung ([facility]) DM2 (diabetes mellitus, type 2) ([facility] ) History of throat cancer Hypertension, benign Hyperlipidemia Bradycardia Resolved Problems Problem Noted Date Diagnosed Date Resolved Date Other closed nondisplaced fr acture of proximal end of left humerus, initial encounter 01/04/2021 04/15/2023 COPD exacerbation ([facility]) 10/27/2020 08/31/2021 Suspected COVID-19 virus infection 12/29/2019 01/03/2020 Calculus of gallbladder with acute on chronic cholecystitis 08/09/2019 08/16/2019 Common bile duct dilatation 08/09/2019 08/16/2019 Ground glass opacity present on imaging of lung 08/09/2019 03/18/2024 Bile duct obstruction 03/26/20172019 Overview (08/09/2019): Last Assessment & Plan: Patient denies jaundice, abdominal pain but recent weight loss. 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 Malignancy, scar, ampullary stenosis, stone. She will need ERCP but also EUS with FNA based on ERCP findings. We do not have EUS here but will refer to [facility] and they can do both procedures, both patient and daughter agreeable. In the meantime will order cmp, cbc and tumor markers Encounters Date Type Department Care Team Description 03/23/2024 Travel 03/22/2024 6:36 PM SAL[facility]AGE C[facility]TER - 03/23/2024 6:35 PM [facility] [place] [address] Cecy Foster DO Dufner, Anastasia M, MD Shortness Of Breath Discharge Disposition: Home or Self Care (Routine Discharge) 03/22/2024 Travel 03/21/2024 5:17 AM [facility] C[facility]TER - 03/21/2024 8:43 AM [facility] [place] [address] Demetrice Bose MD Shortness Of Breath Discharge Disposition: Home or Self Care (Routine Discharge) 03/21/2024 Travel 03/17/2024 5:32 PM [facility]AGE C[facility]TER - 03/19/2024 10:16 AM [facility] Hospital Encounter [facility] [address] [address] Demetrice Bose MD Dufner, Anastasia M, MD Wheeler, Erin M, MD Shortness Of Breath Discharge Disposition: Home or Self Care (Routine Discharge) 03/17/2024 Travel 03/16/2024 5:58 PM [facility]AGE C[facility]TER - 03/16/2024 9:30 PM [facility] [address] [place] [address] Demetrice Bose MD Phemister, Dominic L, MD Fatigue; Headache Discharge Disposition: Home or Self Care (Routine Discharge) 03/16/2024 Travel from Last 3 Months Family History Medical History Relation Comments Lung Cancer Father Breast Cancer Other Heart Disease Other DC Other Relation Status Comments Father Mother Other Social History Tobacco Use Types Packs/Day Years Used Date Smoking Tobacco: Every Day Cigarettes Smokeless Tobacco: Never Alcohol Use Standard Drinks/Week Comments Yes 0 (1 standard drink = 0.6 oz pur e alcohol) Occasional [facility] Utilities Answer Date Recorded In the past 12 months has Confer, oil, or water Geotender threatened to shut off services in your home? No 03/23/2024 Humiliation, Afraid, Rape, and Kick questionnair e Answer Date Recorded Within the last year, have y ou been afraid of your partner or ex-partner? No 03/23/2024 Within the last year, have y ou been humiliated or emotionally abused in other ways by your partner or ex-partner? No Within the last year, have y ou been kicked, hit, slapped, or otherwise physically hurt by your partner or ex-partner? No 03/23/2024 Within the last year, have y ou been raped or forced to have any kind of sexual activity by your partner or ex-partner? No 03/23/2024 Overall Financial Resource Strain (CARDIA) Answe r Date Recorded How hard is it for you to pa y for the very basics like food, housing, medical care, and heating? Patient declined 03/23/2024 Hunger Vital Sign Answer Date Recorded Within the past 12 months, y ou worried that your food would run out before you got the money to buy more. Patient declined Within the past 12 months, t he food you bought just didn't last and you didn't have money to get more. Patient declined 05/2024 PRAPARE - Transportation Answer Date Re corded In the past 12 months, has l ack of transportation kept you from medical appointments or from getting medications? No 05/2024 In the past 12 months, has l ack of transportation kept you from meetings, work, or from getting things needed for daily living? No 03/23/2024 Housing Stability Vital Sign Answer Alejandro e Recorded In the last 12 months, was t here a time when you were not able to pay the mortgage or rent on time? No 03/23/2024 In the past 12 months, how m any times have you moved where you were living? 0 03/23/2024 At any time in the past 12 m [facility], were you homeless or living in a retirement (including now)? No 03/23/2024 Comments No Sex and Gender Information Value Date Recorded Sex Assigned at Female 03/16/2024 6:02 PM [facility] C[facility]TER Legal Sex Female 4:28 PM CDT Gender Identity Female 03/16/2024 6:02 PM [facility] C[facility]TER Sexual Orientation Not on file Last Filed Vital Signs Vital Sign Reading Time Taken Comments Blood Pressure 154/21 03/23/2024 1:03 PM [facility]AGE C[facility]TER Pulse 74 03/23/2024 1:03 PM [facility] Temperature 36.1 C (97 F) 03/23/2024 1:03 PM [facility] C[facility]TER Respiratory Rate 20 03/23/2024 1:03 PM [facility] C[facility]TER Oxygen Saturation 90% 03/23/2024 1:03 PM [facility]AGE C[facility]TER Inhaled Oxygen Concentration - - Weight 64.3 kg (141 lb 12.8 oz) 025 12:55 AM [facility]AGE C[facility]TER Height 167.6 cm (5' 6 ) 03/23/2024 12:5 5 AM [facility]AGE C[facility]TER Body Mass Index 22.89 03/23/2024 12:55 AM [facility]AGE C[facility]TER Plan of Treatment Health Maintenance Due Date Last Done Comments Colorectal Cancer Screening Colonoscopy (10 Years) 1950 Kidney Health Evaluation 1950 Pneumococcal Vaccine: 65+ Ye ars (1 of 2 - PCV) 1954 Diabetes: Retinopathy Eye Exam 1966 Hepatitis C 1966 DTaP, Tdap and Td Vaccines ( 1 - Tdap) 10/07/1967 Zoster Vaccines (1 of 2) 1998 Annual Medicare Wellness Visit 2013 Dexa Scan (General) 2013 Hemoglobin A1C 02/08/2020 08/09/2019 ASCVD LDL 08/09/2020 08/10/2019 Lipid Panel 08/09/2020 08/10/2019 RSV Immunization or 60+ Years (1 - 1-dose 75+ series) 10/07/2023 COVID-19 Vaccine (1 - 2023-2 5 season) 2023 Influenza Adult (#1) 2023 Meningococcal B Vaccine Aged Out No l onger eligible based on patient's age to complete this topic Meningococcal Vaccine Aged Out No jaci violetta eligible based on patient's age to complete this topic RSV Immunizations Under 20 Months Aged Out No longer eligible based on patient's age to complete this topic Goals Goal Patient Goal Type Associated Problems Recent Progress Patient-Stated? Author Safety Patient/family will have appropriate support at home upon discharge General No Windy Martinez, [place] Medical Devices Implanted Type Area Management Technician Device Identifier Shelf Expiration Date Model / Serial / Lot Trach Shiley Cuffed Size 6 - [id number] Implanted:Qty: 2 on 02/22/2020 by Charis Ritter MD at [facility] Tube Implant N/A: Trachea [employer] 10/18/2024 [id number] / / [id number] X Description:1 placed in aileen ent 1 sent with patient to ICU bedside Endovive Safety Peg Kit Implanted:Qty: 1 on 02/29/2020 by Adryan Anthony MD at [facility] Tube Implant N/A: Abdomen [employer] 10/10/2021 [id number] / / [id number] Kit Peg Endovive Safety [employer] 24f - [id number] Implanted:Qty: 1 on 03/30/2020 by Jorge Green MD at [facility] Tube Implant N/A: Abdomen [employer] 06/16/2021 [id number] / / [id number] Procedures Procedure Name Priority Date/Time Associated Diagnosis Comments XR CHEST PORTABLE STAT 03/23/2024 7:2 8 AM [facility] C[facility]TER COMPREHENSIVE METABOLIC PANEL STAT 03/23/2024 4:40 AM [facility]AGE C[facility]TER CBC W/DIFF AUTOMATED STAT 03/23/2024 4:40 AM [facility]AGE C[facility]TER CULTURE, BACTERIA, BLOOD STAT 03/23/2024 12:10 AM [facility]AGE C[facility]TER ECG 12-LEAD STAT 03/22/2024 8:51 PM [facility]AGE C[facility]TER CTA CHEST PE PROTOCOL STAT 03/22/2024 7:46 PM [facility]AGE C[facility]TER TROPONIN, QUANT STAT 03/22/2024 6:57 PM [facility]AGE C[facility]TER COMPREHENSIVE METABOLIC PANEL STAT 03/22/2024 6:57 PM [facility]AGE C[facility]TER CBC W/DIFF AUTOMATED STAT 03/22/2024 6:57 PM [facility]AGE C[facility]TER BASIC METABOLIC PANEL STAT 03/21/2024 7:57 AM [facility]AGE C[facility]TER XR CHEST PORTABLE STAT 03/21/2024 5:5 2 AM [facility]AGE C[facility]TER BLOOD GAS, VENOUS STAT 03/21/2024 5:4 7 AM [facility]AGE C[facility]TER TROPONIN, QUANT STAT 03/21/2024 5:47 AM [facility]AGE C[facility]TER COMPREHENSIVE METABOLIC PANEL STAT 03/21/2024 5:47 AM [facility]AGE C[facility]TER CBC W/DIFF AUTOMATED STAT 03/21/2024 5:47 AM [facility]AGE C[facility]TER ECG 12-LEAD Routine 03/21/2024 5:30 AM [facility]TER COMPREHENSIVE METABOLIC PANEL Routine 03/19/2024 5:26 AM [facility]AGE C[facility]TER CBC W/DIFF AUTOMATED Routine 03/19/2024 5:26 AM [facility]AGE C[facility]TER RESPIRATORY PCR PANEL 2 Routine 03/18/2024 11:40 AM [facility]AGE C[facility]TER RESP SYNCYTIAL VIRUS Routine 03/18/2024 11:40 AM [facility]AGE C[facility]TER MAGNESIUM Routine 03/18/2024 8:53 AM [facility] C[facility]TER COMPREHENSIVE METABOLIC PANEL Routine 03/18/2024 8:53 AM [facility]AGE C[facility]TER CBC W/DIFF AUTOMATED Routine 03/18/2024 8:53 AM [facility]AGE C[facility]TER XR CHEST PORTABLE STAT 03/17/2024 6:1 5 PM [facility] C[facility]TER PROCALCITONIN (PCT) STAT 03/17/2024 6 :04 PM [facility] C[facility]TER PRO-BRAIN NATRIURETIC PEPTIDE STAT 03/17/2024 6:04 PM [facility]AGE C[facility]TER LACTIC ACID W REFLEX (SEPSIS) STAT 03/17/2024 6:04 PM [facility]AGE C[facility]TER BLOOD GAS, VENOUS STAT 03/17/2024 6:0 4 PM [facility]AGE C[facility]TER COMPREHENSIVE METABOLIC PANEL STAT 03/17/2024 6:04 PM [facility]AGE C[facility]TER CBC W/DIFF AUTOMATED STAT 03/17/2024 6:04 PM [facility] C[facility]TER CULTURE, BACTERIA, BLOOD STAT 03/17/2024 6:03 PM [facility] INFLUENZA A & B STAT 03/17/2024 6:00 PM [facility] C[facility]TER CORONAVIRUS (COVID-19) ANTIGEN STAT 03/17/2024 6:[address] HEAD WO CON STAT 03/16/2024 8:25 PM [facility]AGE C[facility]TER URINE BACTERIA CULTURE STAT 7:54 PM SAL[facility]AGE C[facility]TER HC URINALYSIS AUTO W/MICRO STAT 03/16/2024 7:54 PM [facility]AGE C[facility]TER XR CHEST PORTABLE STAT 03/16/2024 6:4 4 PM [facility]AGE C[facility]TER CULTURE, BACTERIA, BLOOD STAT 03/16/2024 6:37 PM [facility] C[facility]TER PRO-BRAIN NATRIURETIC PEPTIDE STAT 03/16/2024 6:37 PM [facility]AGE C[facility]TER MAGNESIUM STAT 03/16/2024 6:37 PM [facility]AGE C[facility]TER LACTIC ACID W REFLEX (SEPSIS) STAT 03/16/2024 6:37 PM [facility]AGE C[facility]TER BLOOD GAS, VENOUS STAT 03/16/2024 6:3 7 PM [facility] C[facility]TER COMPREHENSIVE METABOLIC PANEL STAT 03/16/2024 6:37 PM [facility]AGE C[facility]TER CBC W/DIFF AUTOMATED STAT 03/16/2024 6:37 PM [facility]AGE C[facility]TER ECG 12-LEAD Routine 03/16/2024 6:24 PM [facility] C[facility]TER INFLUENZA A & B STAT 03/16/2024 6:00 PM [facility] C[facility]TER CORONAVIRUS (COVID-19) ANTIGEN STAT 03/16/2024 6:00 PM [facility] C[facility]TER LIPID PANEL Routine 08/10/2019 5:05 AM CDT HEMOGLOBIN, GLYCOSYLATED Routine 08/09/2019 12:05 PM CDT from Last 3 Months or Most Recently Relevant to Health Maintenance Results * XR CHEST PORTABLE (03/23/2024 7:28 AM [facility]AGE C[facility]TER) Only the most recent of4 resultswithin the time period is included. Anatomical Region Laterality Modality Chest Radiographic Belinda ging 03/23/2024 7:43 AM [facility]AGE C[facility]TER Impressions 03/23/2024 7:45 AM [facility]AGE C[facility]TER IMPRESSION: Previous faint subpleural infiltrate in the lateral right lower lung on CT 03/22/2024 not apparent on today's chest radiograph. 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 Referred By: Interpreted By: Koffi Moralez MD, 03/23/2024 7:43 AM Narrative 03/23/2024 7:45 AM SAL[facility]AGE CUTTER [address] [place] [address] 03/23/2024, 7:17 AM. HISTORY: Right lower lobe pneumonia. Follow-up. EXAM: Portable AP chest. Correlation to study 03/21/[address] imaging to 05/06/2024. FINDINGS: [id number]-[id number] catheter is present entering the chest from the right jugular approach, tip in the cavoatrial junction heart. The faint patchy infiltrate laterally in the lower portion of the right lung seen on CT imaging to 05/06/2024 and perhaps barely perceptible on chest radiograph 03/21/2024 is not definitively identified on today's study. No other evidence of pulmonary infiltrate, mass or atelectasis. Heart size is within normal limits. Widened superior mediastinum consistent with ectasia of the aorta and great vessels. No pleural effusion. No pneumothorax. Arthritic changes both shoulders. Procedure Note Charli Moralez MD - 03/23/[address] [place] [address] 03/23/2024, 7:17 AM. HISTORY: Right lower lobe pneumonia. Follow-up. EXAM: Portable AP chest. Correlation to study 03/21/[address] imaging to05/06/2024. FINDINGS: Tijvmw-t-Tndo catheter is present entering the chest from theright jugular approach, tip in the cavoatrial junction heart. The faint patchy infiltrate laterally in the lower portion of the rightlung seen on CT imaging to 05/06/2024 and perhaps barely perceptible onchest radiograph 03/21/2024 is not definitively identified on today's study.No other evidence of pulmonary infiltrate, mass or atelectasis. Heartsize is within normal limits. Widened superior mediastinum consistentwith ectasia of the aorta and great vessels. No pleural effusion. Nopneumothorax. Arthritic changes both shoulders. IMPRESSION: Previous faint subpleural infiltrate in the lateral right lower lung on CT03/22/2024 not apparent on today's chest radiograph. Ectasia of the aortaand great vessels. Referred By: Interpreted By: Koffi Moralez MD, 03/23/2024 7:43 AM Cecy Foster GENERAL IMAGING Final Result * (ABNORMAL) COMPREHENSIVE METABOLIC PANEL (03/23/2024 4:40 AM SAL[facility]AGE CUTTER) Only the most recent of7 resultswithin the time period is included. SODIUM S/P/B 131(L) 136 - 145 MMOL/L 03/23/2024 5:38 AM [facility] POTASSIUM S/P/B 2.7(LL) 3.5 - 5.1 MMOL/L 03/23/2024 5:38 AM [facility] Comment: Critical Result(s) Called to and read back by: ANANYA CAMPBELL at: 05:37:16 03/23/2024 by EKLS. CHLORIDE S/P/B 92(L) 98 - 107 MMOL/L 03/23/2024 5:38 AM [facility] CO2 26.4 21.0 - 32.0 MMOL/L 03/23/2024 5:38 AM [facility] GLUCOSE 125(H) 70 - 99 MG/DL 03/23/2024 5:38 AM [facility] Comment: FASTING GLUCOSE 100 TO 125 MG/DL IS CONSISTENT WITH IMPAIRED FASTING GLUCOSE. FASTING GLUCOSE >125 MG/DL IS CONSISTENT WITH DIABETES. RANDOM GLUCOSE >200 MG/DL WITH HYPERGLYCEMIC SYMPTOMS IS CONSISTENT WITH DIABETES. PER ADA GUIDELINES BUN 16 6 - 24 MG/DL 03/23/2024 5:38 AM [facility] CREATININE S/P/B 1.05(H) 0.55 - 1.02 MG/DL 03/23/2024 5:38 AM [facility] CALCIUM S/P/B 8.0(L) 8.4 - 10.5 MG/DL 03/23/2024 5:38 AM [facility] BILIRUBIN TOTAL S/P/B 0.4 0.2 - 1.0 MG/DL 03/23/2024 5:38 AM [facility] Comment: THIS ASSAY IS NOT RECOMMENDED FOR PATIENTS UNDERGOING TREATMENT WITH ELTROMBOPAG DUE TO THE POTENTIAL FOR FALSELY ELEVATED RESULTS. ALKALINE PHOSPHATASE S/P/B 112 55 - 142 U/L 03/23/2024 5:38 AM [facility] AST 28 15 - 37 U/L 03/23/2024 5:38 AM [facility] ALT 26 14 - 59 U/L 03/23/2024 5:38 AM [facility] TOTAL PROTEIN S/P/B 6.1(L) 6.4 - 8.2 G/DL 03/23/2024 5:38 AM [facility] ALBUMIN S/P/B 3.0(L) 3.4 - 5.0 G/DL 03/23/2024 5:38 AM [facility] ANION GAP 12.6 5.0 - 15.0 MMOL/L 03/23/2024 5:38 AM [facility] OSMOLALITY (CALC) 275 MOSM/KG 025 5:38 AM [facility] Comment:REFERENCE RANGE NOT ESTABLISHED GFR ESTIMATE 55(L) >89 ML/MIN/1. 73 M2 03/23/2024 5:38 AM [facility] GFR NOTES GFR REFERENCE S: 03/23/2024 5:38 AM [facility] Comment: THE ESTIMATED GFR IS CALCULATED USING THE 2020 CKD-EPI EQUATION. THE FOLLOWING CATEGORIES FOR GRADING RENAL FUNCTION ARE RECOMMENDED BY THE INTERNATIONAL SOCIETY OF NEPHROLOGY (KDIGO 2012 CLINICAL PRACTICE GUIDELINE). G1,NORMAL OR HIGH: >89 ml/min/1.73 m2 G2,MILDLY DECREASED: 60-89 ml/min/1.73 m2 G3A,MILDLY TO MODERATELY DECREASED: 45-59 ml/min/1.73 m2 G3B,MODERATELY TO SEVERELY DECREASED: 30-44 ml/min/1.73 m2 G4,SEVERELY DECREASED: 15-29 ml/min/1.73 m2 G5,KIDNEY FAILURE: <15 ml/min/1.73 m2 03/23/2024 4:40 AM SAL[facility]AGE C[facility]TER [facility] LABORATORY Final Result [facility] [address] [place] [address], * (ABNORMAL) CBC W/DIFF AUTOMATED (03/23/2024 4:40 AM SAL[facility]AGE CUTTER) Only the most recent of7 resultswithin the time period is included. WBC 4.47 4.00 - 10.80 x10'3/uL 03/23/2024 5:57 AM [facility] RBC 3.85(L) 4.10 - 5.40 x10'6/uL 03/23/2024 5:57 AM [facility] HGB 11.2(L) 12.0 - 16.0 G/DL 03/23/2024 5:57 AM [facility] HCT 31.1(L) 36.0 - 47.0 % 03/23/2024 5:57 AM [facility] MCV 80.8 78.0 - 100.0 FL 03/23/2024 5:57 AM [facility] MCH 29.1 27.0 - 31.0 PG 03/23/2024 5:57 AM [facility] MCHC 36.0 33.0 - 36.0 G/DL 03/23/2024 5:57 AM [facility] RDW 17.4(H) 11.5 - 14.5 % 03/23/2024 5:57 AM [facility] PLT 188 150 - 350 x10'3/uL 03/23/2024 5:57 AM [facility] MPV 11.3(H) 7.4 - 10.4 FL 03/23/2024 5:57 AM [facility] CBC COMMENT NORMAL REFERENCE RANGE NOT ESTABLISHED FOR THE PROPORTIONAL LEUKOCYTE DIFFERENTIAL. 03/23/2024 5:57 AM [facility] NEUTROPHILS % 71.9 % 03/23/2024 5:57 AM [facility]AGE C[facility]TER [facility] LYMPHOCYTES % 6.9 % 03/23/2024 5:57 AM [facility]AGE C[facility]TER [facility] MONOCYTES % 17.7 % 03/23/2024 5:57 AM [facility]AGE C[facility]TER [facility] EOSINOPHILS % 1.8 % 03/23/2024 5:57 AM [facility] BASOPHILS % 0.4 % 03/23/2024 5:57 AM [facility] C[facility]TER [facility] IMMATURE GRANS % 1.3 % 03/23/19 5:57 AM [facility]AGE C[facility]TER [facility] NRBC % 0.0 % 03/23/2024 5:57 AM [facility]AGE C[facility]TER [facility] ABS. NEUTROPHILS 3.21 1.60 - 8.30 x10'3/uL 03/23/2024 5:57 AM [facility]AGE C[facility]TER [facility] ABS. LYMPHOCYTES 0.31(L) 0.80 - 4.70 x10'3/uL 03/23/2024 5:57 AM [facility]AGE C[facility]TER [facility] ABS. MONOCYTES 0.79 0.00 - 1.50 x10'3/uL 03/23/2024 5:57 AM [facility] C[facility]TER [facility] ABS. EOSINOPHILS 0.08 0.00 - 0.40 x10'3/uL 03/23/2024 5:57 AM [facility] ABS. BASOPHILS 0.02 0.00 - 0.20 x10'3/uL 03/23/2024 5:57 AM [facility] C[facility]TER [facility] ABS. IMMATURE GRANULOCYTES 0.06(H) 0.00 - 0.03 x10'3/uL 03/23/2024 5:57 AM [facility]AGE C[facility]TER [facility] ABS. NUCLEATED RBC'S 0.00 0.00 - 0.01 x10'3/uL 03/23/2024 5:57 AM [facility] 03/23/2024 4:40 AM SAL[facility]AGE CUTTER us Cecy Foster DO LABORATORY Final Result [facility] [address] [place], [place] [address] [phone] * ECG 12 lead (03/22/2024 8:51 PM SALVAGE CUTTER) Only the most recent of3 resultswithin the time period is included. 03/22/2024 8:51 PM [facility]AGE C[facility]TER Narrative [facility] [place] [facility] - 03/22/2024 8:59 PM SALVAGE CUTTER [address] [place] [address] Test Date: 2024-03-22 Pat Name: KARLA LEXA Department: 3 Room: EXAM 202 Gender: Female Inclusion Intern: [facility] : 1950 Requested By: CECY FOSTER Order Number: [id number] Reading MD: Skyler Celis Measurements Intervals [place] Rate: 69 P: 50 LA: 174 QRS: 4 QRSD: 95 T: 107 QT: 364 QTc: 391 Interpretive Statements SINUS RHYTHM POSSIBLE LEFT ATRIAL ENLARGEMENT NONSPECIFIC ST & T-WAVE ABNORMALITY AGE CUTTER Procedure Note Skyler Celis MD - 03/22/[address] [place] [address] Test Date: 2024-03-22 Pat Name: KARLA LOPEZ Department: 3 Room: EXAM 202 Gender: Female Inclusion Intern: [facility] : 1950 Requested By: CCEY FOSTER Order Number: [id number] Reading MD: Skyler Celis Measurements Intervals [place] Rate: 69 P: 50 LA: 174 QRS: 4 QRSD: 95 T: 107 QT: 364 QTc: 391 Interpretive Statements SINUS RHYTHM POSSIBLE LEFT ATRIAL ENLARGEMENT NONSPECIFIC ST & T-WAVE ABNORMALITY AGE CUTTER us Cecy Foster DO ECG ORDERABLES Final Result [facility] RAD * CTA CHEST PE PROTOCOL (03/22/2024 7:46 PM SALVAGE CUTTER) Anatomical Region Laterality Modality Chest Computed Tomogra phy 03/22/2024 8:17 PM SALVAGE CUTTER Impressions 03/22/2024 8:32 PM SALVAGE CUTTER IMPRESSION: 1. No evidence of pulmonary embolus. 2. Nonspecific groundglass opacity/early consolidation in the right lower lobe, suggestive of pneumonia in the appropriate clinical context. 3. Well placed tracheostomy with notable debris in the trachea and mainstem bronchi. 4. New subtle superior endplate depression of L1, unclear if this is degenerative oral could represent a sequelae of a prior subtle compression fracture. No discrete fracture line is seen. This was not present in September 2023. Referred By: Interpreted By: Vaibhav Child MD, 03/22/2024 8:17 PM Narrative 03/22/2024 8:32 PM SAL[facility]AGE C[facility]TER [address] [place] [address] EXAMINATION: CTA CHEST WITH CONTRAST, PULMONARY EMBOLISM INDICATION: COPD and shortness of breath. COMPARISON: 10/03/2023 TECHNIQUE: Computed tomography angiography was performed of the chest after administration of intravenous contrast, 94 mL Isovue-370, according to pulmonary embolism protocol. 3-D reformatted MIPS were constructed at a separate workstation under physician supervision and reviewed. Radiation dose reduction technique(s) were used. FINDINGS: There is good opacification of the pulmonary arteries. No intraluminal filling defects are demonstrated. Tracheostomy appears well-positioned. There is notable debris involving the trachea and proximal bronchi. Focal groundglass opacity/early consolidation in the lateral right lower lobe, nonspecific but suggestive of pneumonia in the appropriate clinical context. No pneumothorax or pleural effusion. No cardiomegaly or pericardial effusion. Artery calcification. The thoracic aorta and main pulmonary artery are normal in caliber. No mediastinal, hilar, or axillary lymphadenopathy. Status post cholecystectomy. Small hiatal hernia. The visualized upper abdomen is otherwise unremarkable. Subtle superior endplate depression of L1, unclear if this is degenerative or represent a subtle new compression fracture. This was not present on the prior exam. Procedure Note Vaibhav Child MD - 03/22/[address] [place] [address] EXAMINATION: CTA CHEST WITH CONTRAST, PULMONARY EMBOLISM INDICATION: COPD and shortness of breath. COMPARISON: 10/03/2023 TECHNIQUE: Computed tomography angiography was performed of the chestafter administration of intravenous contrast, 94 mL Isovue-370, accordingto pulmonary embolism protocol. 3-D reformatted MIPS were constructed jono separate workstation under physician supervision and reviewed. Radiationdose reduction technique(s) were used. FINDINGS: There is good opacification of the pulmonary arteries. No intraluminalfilling defects are demonstrated. Tracheostomy appears well-positioned. There is notable debris involvingthe trachea and proximal bronchi. Focal groundglass opacity/earlyconsolidation in the lateral right lower lobe, nonspecific but suggestiveof pneumonia in the appropriate clinical context. No pneumothorax orpleural effusion. No cardiomegaly or pericardial effusion. Artery calcification. Thethoracic aorta and main pulmonary artery are normal in caliber. Nomediastinal, hilar, or axillary lymphadenopathy. Status post cholecystectomy. Small hiatal hernia. The visualized upperabdomen is otherwise unremarkable. Subtle superior endplate depression of L1, unclear if this is degenerativeor represent a subtle new compression fracture. This was not present onthe prior exam. IMPRESSION: 1. No evidence of pulmonary embolus. 2. Nonspecific groundglass opacity/early consolidation in the right lowerlobe, suggestive of pneumonia in the appropriate clinical context. 3. Well placed tracheostomy with notable debris in the trachea andmainstem bronchi. 4. New subtle superior endplate depression of L1, unclear if this isdegenerative oral could represent a sequelae of a prior subtle compressionfracture. No discrete fracture line is seen. This was not present inAugust 2023. Referred By: Interpreted By: Vaibhav Child MD, 03/22/2024 8:17 PM us Cecy Foster DO CT Final Result * TROPONIN, QUANT (03/22/2024 6:57 PM SAL[facility]AGE C[facility]TER) Only the most recent of2 resultswithin the time period is included. TROPONIN I HIGH SENSITIVITY 14 0 - 51 ng/L 03/22/2024 7:21 PM [facility]AGE C[facility] 03/22/2024 6:57 PM SAL[facility]AGE C[facility]TER Cecy Foster DO LABORATORY Final Result [facility] [address] [place] [address], * (ABNORMAL) BASIC METABOLIC PANEL (03/21/2024 7:57 AM SAL[facility]AGE CUTTER) SODIUM S/P/B 124(L) 136 - 145 MMOL/L 03/21/2024 8:11 AM [facility] POTASSIUM S/P/B 3.6 3.5 - 5.1 MMOL/L 03/21/2024 8:11 AM [facility] CHLORIDE S/P/B 90(L) 98 - 107 MMOL/L 03/21/2024 8:11 AM [facility] CO2 24.8 21.0 - 32.0 MMOL/L 03/21/2024 8:11 AM [facility] GLUCOSE 87 70 - 99 MG/DL 03/21/2024 8:11 AM [facility] Comment: FASTING GLUCOSE 100 TO 125 MG/DL IS CONSISTENT WITH IMPAIRED FASTING GLUCOSE. FASTING GLUCOSE >125 MG/DL IS CONSISTENT WITH DIABETES. RANDOM GLUCOSE >200 MG/DL WITH HYPERGLYCEMIC SYMPTOMS IS CONSISTENT WITH DIABETES. PER ADA GUIDELINES BUN 11 6 - 24 MG/DL 03/21/2024 8:11 AM [facility] CREATININE S/P/B 0.68 0.55 - 1.02 MG/DL 03/21/2024 8:11 AM [facility] CALCIUM S/P/B 7.9(L) 8.4 - 10.5 MG/DL 03/21/2024 8:11 AM [facility] ANION GAP 9.2 5.0 - 15.0 MMOL/L 03/21/2024 8:11 AM [facility] OSMOLALITY (CALC) 257 MOSM/KG 025 8:11 AM [facility] Comment:REFERENCE RANGE NOT ESTABLISHED GFR ESTIMATE >90 >89 ML/MIN/1. 73 M2 03/21/2024 8:11 AM [facility]AGE C[facility]TER [facility] GFR NOTES GFR REFERENCE S: 03/21/2024 8:11 AM [facility]AGE C[facility]TER [facility] Comment: THE ESTIMATED GFR IS CALCULATED USING THE 2020 CKD-EPI EQUATION. THE FOLLOWING CATEGORIES FOR GRADING RENAL FUNCTION ARE RECOMMENDED BY THE INTERNATIONAL SOCIETY OF NEPHROLOGY (KDIGO 2012 CLINICAL PRACTICE GUIDELINE). G1,NORMAL OR HIGH: >89 ml/min/1.73 m2 G2,MILDLY DECREASED: 60-89 ml/min/1.73 m2 G3A,MILDLY TO MODERATELY DECREASED: 45-59 ml/min/1.73 m2 G3B,MODERATELY TO SEVERELY DECREASED: 30-44 ml/min/1.73 m2 G4,SEVERELY DECREASED: 15-29 ml/min/1.73 m2 G5,KIDNEY FAILURE: <15 ml/min/1.73 m2 03/21/2024 7:57 AM SAL[facility]AGE CUTTER us Demetrice Bose MD LABORATORY Final Resul t [facility] [place] [address], * (ABNORMAL) Blood gas, venous (03/21/2024 5:47 AM SAL[facility]AGE C[facility]TER) Only the most recent of3 resultswithin the time period is included. PH VENOUS 7.36 7.32 - 7.43 03/21/2024 6:01 AM [facility] PCO2 VENOUS 45.0 MMHG 03/21/2024 6:01 AM [facility] Comment:NO REFERENCE RANGE H BEEN ESTABLISHED PO2 VENOUS <30.0 MM HG 03/21/2024 6:01 AM [facility] Comment:NO REFERENCE RANGE H BEEN ESTABLISHED TOTAL CO2 VENOUS 26.8(H) 22.0 - 26.0 MMOL/L 03/21/2024 6:01 AM [facility] BASE DEFICIT VENOUS 0.4 MMOL/L 03/21/2024 6:01 AM [facility] Comment:NO REFERENCE RANGE H BEEN ESTABLISHED O2 SAT VENOUS NOT CALCULATED % 025 6:01 AM [facility] Comment:NO REFERENCE RANGE H BEEN ESTABLISHED BICARB VENOUS 25.4 22.0 - 29.0 MMOL/L 03/21/2024 6:01 AM [facility] C[facility]TER [facility] O2 ADMIN VENOUS 10 liters 5:47 AM [facility]AGE C[facility]TER [facility] 03/21/2024 5:47 AM SAL[facility]AGE C[facility]TER Demetrice Bose MD LABORATORY Final Resul t [facility] [address] [place] [address], * RESPIRATORY PCR PANEL 2 (03/18/2024 11:40 AM SAL[facility]AGE CUTTER) ADENOVIRUS PCR (RESP) NOT DETECTED NOT DETECTED 03/18/2024 7:59 PM [facility]AGE C[facility]TER [facility] CORONAVIRUS 229E PCR (RESP) NOT DETECTED NOT DETECTED 03/18/2024 7:59 PM [facility]AGE C[facility]TER [facility] CORONAVIRUS HKU1 PCR (RESP) NOT DETECTED NOT DETECTED 03/18/2024 7:59 PM [facility] C[facility]TER [facility] CORONAVIRUS NL63 PCR (RESP) NOT DETECTED NOT DETECTED 03/18/2024 7:59 PM [facility]AGE C[facility]TER [facility] CORONAVIRUS OC43 PCR (RESP) NOT DETECTED NOT DETECTED 03/18/2024 7:59 PM [facility]AGE C[facility]TER [facility] METAPNEUMOVIRUS PCR (RESP) NOT DETECTED NOT DETECTED 03/18/2024 7:59 PM [facility]AGE C[facility]TER [facility] RHINOVIRUS/ENTEROV IRUS PCR (RESP) NOT DETECTED NOT DETECTED 03/18/2024 7:59 PM [facility]AGE C[facility]TER [facility] INFLUENZA A PCR (RESP) NOT DETECTED NOT DETECTED 03/18/2024 7:59 PM [facility]AGE C[facility]TER [facility] INFLUENZA B PCR (RESP) NOT DETECTED NOT DETECTED 03/18/2024 7:59 PM [facility]AGE C[facility]TER [facility] PARAINFLUENZA 1 PCR (RESP) NOT DETECTED NOT DETECTED 03/18/2024 7:59 PM [facility]AGE C[facility]TER [facility] PARAINFLUENZA 2 PCR (RESP) NOT DETECTED NOT DETECTED 03/18/2024 7:59 PM [facility]AGE C[facility]TER [facility] PARAINFLUENZA 3 PCR (RESP) NOT DETECTED NOT DETECTED 03/18/2024 7:59 PM [facility]AGE C[facility]TER [facility] PARAINFLUENZA 4 PCR (RESP) NOT DETECTED NOT DETECTED 03/18/2024 7:59 PM [facility]AGE C[facility]TER [facility] RSV PCR (RESP) NOT DETECTED NOT DETECTED 03/18/2024 7:59 PM [facility]AGE C[facility]TER [facility] B PARAPERTUSIS PCR (RESP) NOT DETECTED NOT DETECTED 03/18/2024 7:59 PM [facility]AGE C[facility]TER [facility] BORDETELLA PERTUSSIS PCR (RESP) NOT DETECTED NOT DETECTED 03/18/2024 7:59 PM [facility]AGE C[facility]TER [facility] CHLAMYDOPHILA PNEUMONIAE PCR (RESP) NOT DETECTED NOT DETECTED 03/18/2024 7:59 PM [facility]AGE C[facility]TER [facility] MYCOPLASMA PNEUMONIAE PCR (RESP) NOT DETECTED NOT DETECTED 03/18/2024 7:59 PM [facility]AGE C[facility]TER [facility] CORONAVIRUS SARS COV 2 PCR (RESP) NOT DETECTED NOT DETECTED 03/18/2024 7:59 PM [facility]AGE C[facility]TER [facility] NASOPHARYNGEAL SWAB / Unknown 03/18/2024 11:40 AM SAL[facility]AGE CUTTER Frances Alcazar MD MICROBIOLOGY - GENERAL ORD ERABLES Final Result [facility] [address] [place] [address], [id number] * RESP SYNCYTIAL VIRUS (03/18/2024 11:40 AM SAL[facility]AGE CUTTER) SPECIMEN TYPE NASOPHARYNGEAL SWAB 03/18/2024 11:48 AM [facility]AGE CUTTER [facility] RSV NEGATIVE NEGATIVE 03/18/2024 12:29 PM [facility]AGE C[facility]TER [facility] NASOPHARYNGEAL SWAB / Unknown 03/18/2024 11:40 AM SAL[facility]AGE CUTTER us Frances Alcazar MD MICROBIOLOGY - GENERAL ORD ERABLES Final Result Performing Organization Address [facility]/ZIP Co de Phone Number [facility] [address] [place] [address], [place] [phone] * MAGNESIUM (03/18/2024 8:53 AM SAL[facility]AGE CUTTER) Only the most recent of2 resultswithin the time period is included. MAGNESIUM 2.0 1.8 - 2.4 MG/DL 03/18/2024 9:31 AM [facility]AGE C[facility]TER [facility] 03/18/2024 8:53 AM SAL[facility]AGE CUTTER us Frances Alcazar MD LABORATORY Final Resu lt Performing Organization Address [facility] Co de Phone Number [address] [address], * LACTIC ACID W REFLEX (SEPSIS) (03/17/2024 6:04 PM SALVAGE CUTTER) Only the most recent of2 resultswithin the time period is included. LACTIC ACID VENOUS 1.7 0.4 - 2.0 MMOL/L 03/17/2024 6:33 PM [facility]AGE C[facility]TER [facility] 03/17/2024 6:04 PM SAL[facility]AGE C[facility]TER Demetrice Bose MD LABORATORY Final Resul t Performing Organization Address [facility]/ZIP Co de Phone Number [facility] [address] [place] [address], [place] [phone] * PROCALCITONIN (PCT) (03/17/2024 6:04 PM SAL[facility]AGE CUTTER) Procalcitonin 0.02 0.00 - 0.49 NG/ML 03/19/2024 10:18 AM [facility]AGE C[facility]TER [facility] 03/17/2024 6:04 PM SAL[facility]AGE C[facility]TER us Demetrice Bose MD LABORATORY Final Resul t [facility] [address] [place] [address], [place] [phone] * PRO-BRAIN NATRIURETIC PEPTIDE (03/17/2024 6:04 PM SAL[facility]AGE CUTTER) Only the most recent of2 resultswithin the time period is included. PRO-B TYPE NATRIURETIC PEPTIDE 84 <450 PG/ML 03/17/2024 6:38 PM SAL[facility]AGE CUTTER [facility] Comment: CUT POINTS ESTABLISHED BY INTERNATIONAL COLLABORATIVE ON NT PROBNP (ICON) STUDY (2006). AGE INDEPENDENT: <300 PG/ML HAS A 99% NEGATIVE PREDICTIVE VALUE FOR EXCLUDING ACUTE CHF <50 YEARS: >450 PG/ML IS CONSISTENT WITH ACUTE CHF 50-75 YEARS: >900 PG/ML IS CONSISTENT WITH ACUTE CHF >75 YEARS: >1800 PG/ML IS CONSISTENT WITH ACUTE CHF IN PATIENTS WITH RENAL INSUFFICIENCY (GFR <60), >1200 PG/ML YIELDS A DIAGNOSTIC SENSITIVITY AND SPECIFICITY OF 89% AND 72% FOR ACUTE CHF. 03/17/2024 6:04 PM SAL[facility]AGE CUTTER us Demetrice Bose MD LABORATORY Final Resul t Performing Organization Address City/[facility] Co de Phone Number [facility] [address] [place] [address], [place] [phone] * BLOOD CULTURE #1 (03/17/2024 6:03 PM SAL[facility]AGE CUTTER) Only the most recent of2 resultswithin the time period is included. SPEC DESCRIPTION BLOOD 03/17/2024 5:44 PM [facility]AGE C[facility]TER [facility] SPECIAL REQUESTS NO SPECIAL REQUEST 03/17/2024 5:44 PM [facility]AGE C[facility]TER [facility] CULTURE RESULT NO GROWTH 5 DAYS 03/22/2024 10:43 AM SAL[facility]AGE CUTTER [facility] BLOOD SPECIMEN OBTAINED FOR BLOOD CULTURE / Unknown 03/17/2024 6:03 PM SAL[facility]AGE C[facility]TER 03/17/2024 6:04 PM [facility]AGE CUTTER us Demetrice Bose MD MICROBIOLOGY - GENERAL ORDMattie GREWAL Final Result Performing Organization Address City/[facility]/ZIP Co de Phone Number [facility] [address] [place] [phone], * CORONAVIRUS (COVID-19) ANTIGEN (03/17/2024 6:00 PM SAL[facility]AGE CUTTER) Only the most recent of2 resultswithin the time period is included. CORONAVIRUS ANTIGEN IA NEGATIVE NEGATIVE 03/17/2024 7:08 PM SAL[facility]AGE CUTTER [facility] Comment: NEGATIVE RESULTS DO NOT RULE OUT SARS-COV-2 INFECTION AND SHOULD NOT BE USED THE SOLE BASIS FOR TREATMENT OR PATIENT MANAGEMENT DECISIONS, INCLUDING INFECTION CONTROL DECISIONS. NEGATIVE RESULTS SHOULD BE CONSIDERED IN THE CONTEXT OF A PATIENT'S RECENT EXPOSURES, HISTORY AND THE PRESENCE OF CLINICAL SIGNS AND SYMPTOMS CONSISTENT WITH COVID 19. THIS TEST HAS BEEN AUTHORIZED BY THE FDA UNDER AN EMERGENCY USE AUTHORIZATION (EUA) FOR USE BY AUTHORIZED LABORATORIES. SPECIMEN TYPE NASAL 03/17/2024 6:11 PM SALVAGE CUTTER [facility] NASAL NASAL STRUCTURE / Unknown 03/17/2024 6:00 PM SALVAGE CUTTER us Demetrice Bose MD [facility] LUCY GREWAL Final Result Performing Organization Address [facility]/ZIP Co de Phone Number [facility] [address] [place] [address], [place] [phone] * INFLUENZA A & B (03/17/2024 6:00 PM SALVAGE CUTTER) Only the most recent of2 resultswithin the time period is included. SPECIMEN TYPE (INFLUENZA) NASOPHARYNGEAL SWAB 03/17/2024 6:11 PM SALVAGE CUTTER [facility] INFLUENZA A NEGATIVE NEGATIVE 03/17/2024 6:49 PM SALVAGE CUTTER [facility] INFLUENZA B NEGATIVE NEGATIVE 03/17/2024 6:49 PM SALVAGE CUTTER [facility] Comment: A NEGATIVE RESULT DOES NOT EXCLUDE INFLUENZA VIRUS INFECTION. IF INFLUENZA IS CIRCULATING IN YOUR COMMUNITY, A DIAGNOSIS OF INFLUENZA SHOULD BE CONSIDERED BASED ON A PATIENT'S CLINICAL PRESENTATION AND EMPIRIC ANTIVIRAL TREATMENT SHOULD BE CONSIDERED IF INDICATED. NASOPHARYNGEAL SWAB / Unknown 03/17/2024 6:00 PM SALVAGE CUTTER us Demetrice Bose MD MICROBIOLOGY - GENERAL LUCY GREWAL Final Result [facility] [address] [place] [address], * CT HEAD WO CON (03/16/2024 8:25 PM SALVAGE CUTTER) Anatomical Region Laterality Modality Head Computed Tomogra phy 03/16/2024 8:50 PM SALVAGE CUTTER Impressions 03/16/2024 8:53 PM SALVAGE CUTTER IMPRESSION: 1. No acute intracranial findings. If there is persistent clinical concern for acute ischemia, brain MRI is more sensitive. 2. Chronic microvascular change. Referred By: Interpreted By: Bryce Marley MD, 03/16/2024 8:50 PM Narrative 03/16/2024 8:53 PM SALVAGE CUTTER [address] [place] [address] EXAMINATION: CT of the head EXAM DATE/TIME: 03/16/2024 8:19 PM REASON FOR EXAM: 73 years of age, Female, with headache, weakness COMPARISON: Brain MRI 05/20/2012 TECHNIQUE: Axial CT images of the brain are obtained from skull base through vertex without the use of IV contrast agent. A dose lowering technique was used for this procedure, which may include, but is not limited to, dose reduction technique, automated exposure control, iterative reconstruction, ALARA (As Low As Reasonably Achievable), or Image Gently techniques. FINDINGS: Periventricular and subcortical white matter hypodensities are seen, which likely represent sequelae of chronic microvascular change. No acute intracranial hemorrhage or CT evidence of acute-subacute, large territory infarct. There is no evidence of hydrocephalus, extraaxial fluid collection, mass effect or midline shift. There is no acute displaced calvarial fracture. Visualized paranasal sinuses and mastoid air cells are clear. Procedure Note Bryce Marley MD - 03/16/2024 [facility] [address] [place] [address] EXAMINATION: CT of the head EXAM DATE/TIME: 03/16/2024 8:19 PM REASON FOR EXAM: 73 years of age, Female, with headache, weakness COMPARISON: Brain MRI 05/20/2012 TECHNIQUE: Axial CT images of the brain are obtained from skull basethrough vertex without the use of IV contrast agent. A dose loweringtechnique was used for this procedure, which may include, but is notlimited to, dose reduction technique, automated exposure control,iterative reconstruction, ALARA (As Low As Reasonably Achievable), orImage Gently techniques. FINDINGS: Periventricular and subcortical white matter hypodensities are seen, whichlikely represent sequelae of chronic microvascular change. No acute intracranial hemorrhage or CT evidence of acute-subacute, largeterritory infarct. There is no evidence of hydrocephalus, extraaxial fluid collection, masseffect or midline shift. There is no acute displaced calvarial fracture. Visualized paranasal sinuses and mastoid air cells are clear. IMPRESSION: 1. No acute intracranial findings. If there is persistent clinicalconcern for acute ischemia, brain MRI is more sensitive. 2. Chronic microvascular change. Referred By: Interpreted By: Bryce Marley MD, 03/16/2024 8:50 PM us Chevy Alonso MD CT Final Res ult * (ABNORMAL) URINALYSIS (03/16/2024 7:54 PM SALVAGE CUTTER) COLOR (U) YELLOW 03/16/2024 8:30 PM SALVAGE CUTTER [facility] TRANSPARENCY CLEAR 03/16/2024 8:30 PM SALVAGE CUTTER [facility] SPECIFIC GRAVITY (U) 1.010 1.000 - 1.025 03/16/2024 8:30 PM SALVAGE CUTTER [facility] U PH 6.5 5.0 - 8.0 03/16/2024 8:30 PM SALVAGE CUTTER [facility] LEUKOCYTES (U) TRACE(A) NEGATIVE 03/16/2024 8:30 PM SALVAGE CUTTER [facility] NITRITES NEGATIVE NEGATIVE 03/16/2024 8:30 PM SALVAGE CUTTER [facility] PROTEIN RANDOM (U) NEGATIVE NEGATIVE 03/16/2024 8:30 PM SALVAGE CUTTER [facility] GLUCOSE (U) NEGATIVE NEGATIVE 03/16/2024 8:30 PM SALVAGE CUTTER [facility] KETONES MG/DL (U) NEGATIVE NEGATIVE 03/16/2024 8:30 PM SALVAGE CUTTER [facility] UROBILINOGEN 0.2 <1.0 EU/DL 03/16/2024 8:30 PM SALVAGE CUTTER [facility] BILIRUBIN (U) NEGATIVE NEGATIVE 03/16/2024 8:30 PM SALVAGE CUTTER [facility] BLOOD (U) NEGATIVE NEGATIVE 03/16/2024 8:30 PM SALVAGE CUTTER [facility] WBC/HPF 0-5 0 - 5 /HPF 03/16/2024 8:30 PM SALVAGE CUTTER [facility] EPI/LPF OCCASIONAL /LPF 03/16/2024 8:30 PM SALVAGE CUTTER [facility] BACTERIA (U) 1+ /HPF 03/16/2024 8:30 PM SALVAGE CUTTER [facility] MUCUS PRESENT 03/16/2024 8:30 PM SALVAGE CUTTER [facility] URINE SPECIMEN OBTAINED BY CLEAN CATCH PROCEDURE / Unknown 03/16/2024 7:54 PM SALVAGE CUTTER us Demetrice Bose MD URINE ORDERABLES Final Resu lt [facility] [address] [place] [address], * CULTURE URINE (03/16/2024 7:54 PM SALVAGE CUTTER) SPEC DESCRIPTION URINE CLEAN CATCH 03/16/2024 7:55 PM SALVAGE CUTTER [facility] SPECIAL REQUESTS NO SPECIAL REQUEST 03/16/2024 7:55 PM SALVAGE CUTTER [facility] CULTURE RESULT FEW CONTAMINANTS 02/19 10:27 AM SALVAGE CUTTER [facility] URINE SPECIMEN OBTAINED BY CLEAN CATCH PROCEDURE / Unknown 03/16/2024 7:54 PM SALVAGE CUTTER 03/16/2024 8:00 PM SALVAGE CUTTER us Demetrice Bose MD MICROBIOLOGY - GENERAL LUCY GREWAL Final Result [facility] [address] [place] [address], [id number] [facility] [address] [place] [address], * (ABNORMAL) LIPID PANEL (08/10/2019 5:05 AM CDT) CHOLESTEROL 137 <200 MG/DL 08/10/2019 6:10 AM CDT [facility] Comment: THE NATIONAL LIPID ASSOCIATION AND THE NATIONAL CHOLESTEROL EDUCATION PROGRAM (NCEP) HAVE SET THE FOLLOWING GUIDELINES FOR TOTAL CHOLESTEROL IN ADULTS AGES 18 AND UP. DESIRABLE: <200 BORDERLINE HIGH: 200-239 HIGH: > OR = 240 TRIGLYCERIDES 81 <150 MG/DL 08/10/2019 6:10 AM CDT [facility] Comment: THE NATIONAL LIPID ASSOCIATION AND THE NATIONAL CHOLESTEROL EDUCATION PROGAM (NCEP) HAVE SET THE FOLLOWING GUIDELINES FOR TRIGLYCERIDES IN ADULTS AGES 18 AND UP. NORMAL: <150 BORDERLINE HIGH: 150 TO 199 HIGH: 200 TO 499 VERY HIGH: >499 HDL 43(L) >49 MG/DL 08/10/2019 6:10 AM CDT [facility] Comment: THE NATIONAL LIPID ASSOCIATION AND THE NATIONAL CHOLESTEROL EDUCATION PROGAM (NCEP) HAVE SET THE FOLLOWING GUIDELINES FOR HDL CHOLESTEROL IN ADULTS AGES 18 AND UP. MALES: >39 FEMALES: >49 LDL (CALCULATED) 78 <100 MG/DL 08/10/19 6:10 AM CDT [facility] Comment: THE NATIONAL LIPID ASSOCIATION AND THE NATIONAL CHOLESTEROL EDUCATION PROGAM (NCEP) HAVE SET THE FOLLOWING GUIDELINES FOR LDL CHOLESTEROL IN ADULTS AGES 18 AND UP. DESIRABLE: <100 ABOVE DESIRABLE: 100 TO 129 BORDERLINE HIGH: 130 TO 159 HIGH: 160 TO 189 VERY HIGH: >189 VLDL CALCULATION 16 MG/DL 08/10/19 6:10 AM CDT [facility] Comment:REFERENCE RANGE NOT ESTABLISHED CHOL/HDL RATIO 3.2 08/10/2019 6:10 AM CDT [facility] Comment:REFERENCE RANGE NOT ESTABLISHED LDL/HDL 1.8 08/10/2019 6:10 AM CDT [facility] Comment:REFERENCE RANGE NOT ESTABLISHED NON HDL CHOLESTEROL 94 MG/DL 08/10/2019 6:10 AM CDT [facility] Comment:REFERENCE RANGE NOT ESTABLISHED 08/10/2019 5:05 AM CDT us [facility] Final Result [facility] [place] [address], * (ABNORMAL) HEMOGLOBIN, GLYCOSYLATED (08/09/2019 12:05 PM CDT) HGB A1C 5.7(H) <5.7 % 08/09/2019 3:36 PM CDT [facility] Comment: 5.7 TO 6.4% INCREASED RISK OF DIABETES > OR = 6.5% CONSISTENT WITH DIABETES PER ADA GUIDELINES ESTIMATED AVG GLUCOSE 117 70 - 140 MG/DL 08/09/2019 3:36 PM CDT [facility] 08/09/2019 12:0 5 PM CDT us [facility] Final Result Performing Organization Address City/[facility]/ZIP Co de Phone Number [facility] [address] [place] [phone], from Last 3 Months or Most Recently Relevant to Health Maintenance Insurance MEDICARE MEDICAID Advance Directives * Full Code (Latest Code Status on File) Date Activated Date Inactivated Comments 03/23/2024 12:02 AM 03/23/2024 8:41 PM * Full Code Date Activated Date Inactivated Comments 03/17/2024 11:01 PM 03/19/2024 12:16 PM * Full Code Date Activated Date Inactivated Comments 08/29/2021 8:54 PM 08/31/2021 8:18 PM * Full Code Date Activated Date Inactivated Comments 10/27/2020 2:06 AM 10/28/2020 10:57 PM * Full Code Date Activated Date Inactivated Comments 06/20/2020 12:34 AM 06/30/2020 8:18 PM Care Teams Information Analyst Relationship Specialty Start Date End Date Jayson Lake MD [address] [place] [phone] PCP - General FAMILY PRACTICE 12/29/20 Brandt Rosas MD [address] [place] [phone] EP Animal Attendant CLINICAL CARDIAC ELECTROPHYSIOLOGY 04/07/20
--- OUTSIDE RECORDS SUMMARY | 2024-03-24 22:40 | XMS_ITS | Referral Summary ---
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 Malignancy, scar, ampullary stenosis, stone. She will need ERCP but also EUS with FNA based on ERCP findings. We do not have EUS here but will refer to [facility] and they can do both procedures, both patient and daughter agreeable. 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 Assessment & Plan (03/26/2017 10:06 AM MACHINIST 2ND SHIFT): Denies dysphagia, treated with radiation Weight loss 03/26/2017 Assessment & Plan (03/26/2017 10:07 AM MACHINIST 2ND SHIFT): Concerning for malignancy, ercp +/- eus based on abnormal mrcp Tobacco use 03/26/2017 Social History Tobacco Use Types Packs/Day Years Used Date Smoking Tobacco: Every Day Cigarettes 1.5 38 Smokeless Tobacco: Never Alcohol Use Standard Drinks/Week Comments Yes 0 (1 standard drink = 0.6 oz pur e alcohol) Social - rare Personal Safety Answer Date Recorded Getting School Help Needed Not on file 05/03 Comments Unknown Sex and Gender Information Value Date Recorded Sex Assigned at Not on file Legal Sex Female 11:02 AM MACHINIST 2ND SHIFT Gender Identity Not on file Sexual Orientation Not on file Last Filed Vital Signs Vital Sign Reading Time Taken Comments Blood Pressure 160/78 03/26/2017 9:37 AM MACHINIST 2ND SHIFT Pulse 61 03/26/2017 9:37 AM MACHINIST 2ND SHIFT Temperature 36.9 C (98.4 F) 03/26/2017 9:37 AM MACHINIST 2ND SHIFT Respiratory Rate - - Oxygen Saturation 91% 08/22/2015 3:14 PM CDT Inhaled Oxygen Concentration - - Weight 61.2 kg (135 lb) 03/26/2017 9:37 AM MACHINIST 2ND SHIFT Height 163.2 cm (5' 4.25 ) 03/26/2017 9:37 AM CS T Body Mass Index 22.99 03/26/2017 9:37 AM MACHINIST 2ND SHIFT Plan of Treatment Not on file Insurance MEDICARE [facility] MEDICARE [facility] Address: [address] [address] [place] [address] [employer] Advance Directives For more information, please contact: [phone] Documents on File Type Date Recorded Patient 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
--- OUTSIDE RECORDS SUMMARY | 2024-03-24 22:40 | XMS_ITS | Encounter Summary ---
Author Organization [facility] Address [address] [place] [address] Care Team Providers Care Sprigger Name Role Phone Brandt Rosas MD Unavailable [phone] Jayson Lake MD Primary Care Provider [phone] Encounter Details Date Type Department Care Team (Latest Contact Info) Description 03/23/2024 Travel Social History Tobacco Use Types Packs/Day Years Used Date Smoking Tobacco: Every Day Cigarettes Smokeless Tobacco: Never Alcohol Use Standard Drinks/Week Comments Yes 0 (1 standard drink = 0.6 oz pur e alcohol) Occasional [facility] Utilities Answer Date Recorded In the past 12 months has e electric, gas, oil, or water [employer] threatened to shut off services in your [...] any time in the past 12 [facility], were you homeless or living in a usp (including now)? 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 No 03/23/2024 1:34 AM Nya Grullon RN Active * Question Answer Date of Assessment Author Status Do you have difficulty dressing or bathing? No 03/23/2024 1:34 AM Nya Grullon RN Active Because of a physical, mental, or emotional condition, do you have difficulty doing errands alone such as visiting a doctor's office or shopping? No 03/23/2024 1:34 AM Nya Grullon RN A ctive * Are you deaf or do you have serious difficulty hearing Answer Date of Assessment Author Status No 03/23/2024 1:34 AM Nya Grullon RN Active * Are you blind or do you have serious difficulty seeing, even when wearing glasses? Answer Date of Assessment Author Status No 03/23/2024 1:34 AM Nya Grullon RN Active * Do you have serious difficulty walking or climbing stairs? Answer Date of Assessment Author Status No 03/23/2024 1:34 AM Nya Grullon RN Active * Do you have difficulty dressing or bathing? Answer Date of Assessment Author Status No 03/23/2024 1:34 AM Nya Grullon RN Active * Because of a physical, mental, or emotional condition, do you have difficulty doing errands alone such as visiting a doctor's office or shopping? Answer Date of Assessment Author Status No 03/23/2024 1:34 AM Nya Grullon RN Active documented as of this encounter Mental Status * Question Answer Entry Date Author Status Because of a physical, mental, or emotional condition, do you have serious difficulty concentrating, remembering, or making decisions? Yes 03/23/2024 1:34 AM Nya Grullon RN Active * Because of a physical, mental, or emotional condition, do you have serious difficulty concentrating, remembering, or making decisions? Answer Entry Date Author Status Yes 03/23/2024 1:34 AM Nya Grullon RN Active documented in this encounter Plan of Treatment Not on file documented as of this encounter Goals Goal Patient Goal Type Associated Problems Recent Progress Patient-Stated? Author Safety Patient/family will have appropriate support at home upon discharge General No Windy Martinez LSW documented as of this encounter Visit Diagnoses Not on filedocumented in this encounter Care Teams Sprigger Relationship Specialty Start Date End Date Jayson Lake MD [address] [place] [phone] PCP - General FAMILY PRACTICE 12/29/20 Brandt Rosas MD [address] [place] [phone] EP Life Skills Coordinator CLINICAL CARDIAC ELECTROPHYSIOLOGY 04/07/20 documented as of this encounter
--- OUTSIDE RECORDS SUMMARY | 2024-03-24 22:40 | XMS_ITS | Encounter Summary ---
Author Organization [facility] Address [facility] [place] [address] Care Team Providers Care Stock Feeder Name Role Phone Brandt Rosas MD Unavailable [phone] Jayson Crenshaw MD Primary Care Provider [phone]- [phone] Reason for Referral * Imaging (Emergency) - Pending Review Specialty Diagnoses / Procedures Referred By Contac t Referred To Contact RADIOLOGY Procedures CTA CHEST PE PROTOCOL CTA CHEST Cecy Foster DO [address] [place] [address] Phone: tel: fax: Referral ID Status Reason Start Date Expiration Date V isits Requested Visits Authorized [id number] Pending Review 03/22/2024 03/22/2025 1 1 F CLINICAL DIETITIAN Reason for Visit * Reason Comments Shortness Of Breath * Auth/Cert (Routine) Specialty Diagnoses / Procedures Referred By Contac t Referred To Contact Diagnoses Pneumonia Hypoxia Frances Alcazar MD [address] [place] [address] Phone: tel: fax: Referral ID Status Reason Start Date Expiration Date Visits Re quested Visits Authorized [id number] 1 1 Encounter Details Date Type Department Care Team (Late st Contact Info) Description 03/22/2024 6:36 PM CHIEF CLINICAL DIETITIAN - 03/23/2024 6:35 PM CHIEF CLINICAL DIETITIAN [facility] [address] [place] [address] Cecy Foster DO [address] [place] [address] Frances Alcazar MD [address] [place] [id number] Shortness Of Breath Discharge Disposition: Home or Self Care (Routine Discharge) Social History Tobacco Use Types Packs/Day Years Used Date Smoking Tobacco: Every Day Cigarettes Smokeless Tobacco: Never Alcohol Use Standard Drinks/Week Comments Yes 0 (1 standard drink = 0.6 oz pur e alcohol) Occasional [facility] Utilities Answer Date Recorded In the past 12 months has th e [employer], gas, oil, or water [employer] threatened to shut off services in your [...] any time in the past 12 m [facility], were you homeless or living in a prison (including now)? No 03/23/2024 Comments No Sex and Gender Information Value Date Recorded Sex Assigned at Female 03/16/2024 6:02 PM CHIEF CLINICAL DIETITIAN Legal Sex Female 4:28 PM CDT Gender Identity Female 03/16/2024 6:02 PM CHIEF CLINICAL DIETITIAN Sexual Orientation Not on file documented as of this encounter Last Filed Vital Signs Vital Sign Reading Time Taken Comments Blood Pressure 154/21 03/23/2024 1:03 PM CHIEF CLINICAL DIETITIAN Pulse 74 03/23/2024 1:03 PM CHIEF CLINICAL DIETITIAN Temperature 36.1 C (97 F) 03/23/2024 1:03 PM CHIEF CLINICAL DIETITIAN Respiratory Rate 20 03/23/2024 1:03 PM CHIEF CLINICAL DIETITIAN Oxygen Saturation 90% 03/23/2024 1:03 PM CHIEF CLINICAL DIETITIAN Inhaled Oxygen Concentration - - Weight 64.3 kg (141 lb 12.8 oz) 025 12:55 AM CHIEF CLINICAL DIETITIAN Height 167.6 cm (5' 6 ) 03/23/2024 12:5 5 AM CHIEF CLINICAL DIETITIAN Body Mass Index 22.89 03/23/2024 12:55 AM CHIEF CLINICAL DIETITIAN documented in this encounter Functional Status * Question Answer Date of Assessment Author Status Do you have serious difficulty walking or climbing stairs? No 03/23/2024 1:34 AM CHIEF CLINICAL DIETITIAN Nya Velasquez RN Active * Question Answer Date of [...] Grullon RN Active documented in this encounter Discharge Instructions * Attachments The following attachments cannot be sent through Care Everywhere. * Pneumonia Discharge Instructions, Adult (Barbadian) documented in this encounter Medications at Time of Discharge azithromycin (ZITHROMAX) 250 MG tablet Take 2 tablets by mouth on day one then 1 daily for four days. 6 tablet 03/24/2024 03/28/2024 albuterol (2.5 MG/3ML) 0.083% nebulizer solution 02/19/2020 albuterol sulfate HFA 108 (90 Base) MCG/ACT inhaler Inhale 1 puff into the lungs every 6 (six) hours as needed for Wheezing. amoxicillin-clavu lanate (AUGMENTIN) 875-125 MG tablet Take 1 tablet (875 mg total) by mouth every 12 (twelve) hours for 10 days. 20 tablet 03/19/2024 03/29/2024 atorvastatin (LIPITOR) 20 MG tablet Take 1 tablet (20 mg total) by mouth daily. 02/24/2023 levothyroxine (SYNTHROID) 125 MCG tablet Take 1 tablet (125 mcg total) by mouth. 02/24/2023 mirtazapine 15 MG tablet Take 1 tablet (15 mg total) by mouth daily. 11/20/2020 omeprazole (PRILOSEC) 20 MG capsule Take 1 capsule (20 mg total) by mouth daily. 03/20/2023 predniSONE (DELTASONE) 20 MG tablet Take 2 tablets (40 mg total) by mouth daily for 10 days. 20 tablet 03/19/2024 03/29/2024 traMADol (ULTRAM) 50 MG tabletIndications :Acute Pain < 7 Day Supply Indications: Acute Pain < 7 Day Supply 1-2 tabs po q6 hours prn pain 12 tablet 03/21/2024 documented as of this encounter Progress Notes * Andra Monsivais RN - 03/23/2024 4:34 PM CSTSummary: FINAL D/C note Final D/C Note Destination: Home Transportation: cab New DME for home: none Karla continues to decline home health and all other resources. F CLINICAL DIETITIAN * Andra Monsivais RN - 03/23/2024 4:33 PM CSTSummary: FINAL D/C plan 03/23/24 1633 Discharge Planning Living Arrangements Alone Support Systems Family members Type of Residence Private residence Assistance Needed No Patient expects to be discharged to: Home or Self care no new needs Insurance Authorization needed No Does the patient need discharge transport arranged? Yes Type of transportation needed? Other(Comment) (cab) Has discharge transport been arranged? Yes What day is the transport expected? 03/23/24 IV Infusion at discharge No DME Needed at Discharge No Karla is to return home via cab as she stated she has no other means for transportation. She continues to decline home health and all other resources. F CLINICAL DIETITIAN * Andra Monsivais RN - 03/23/2024 4:31 PM CSTSummary: Initial D/C plan 03/23/24 1631 Discharge Plan Discharge Plan Discharge to Home LULY spoke with Karla regarding her discharge plan. She declined home health and was not interested in resources. Pt is very noncompliant. She stated she will need a cab home. F CLINICAL DIETITIAN * Andra Monsivais RN - 03/23/2024 4:29 PM CSTSummary: Initial Assessment 03/23/24 1627 Referral Data Source of Information Patient Patient Information Primary Caregiver Self Current living Situation Alone Type of Residence Private residence Support System Immediate family Are you employed? Retired Recent Hospitalization Recent Hospitalization within 30 days Yes (03/17: SOB) Legal Information Guardianship Documentation Not applicable Power of Strategic Communications Manager Healthcare Status Patient Declines Baseline ADL's Functional Status Independent Active DME Oxygen;Other (comment) (trach) Behavior Oriented;Cooperative Communication Understands speaking;Understands Barbadian;Nonverbal Psychosocial Need Indicator Mental health concerns No Diagnosis/prognosis resulting in poor adjustment or coping with illness No Diagnosis/prognosis with anticipated outcome of major lifestyle changes, including change in assistant 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 The screening is to screen the patient for what services and destination would be beneficial for patient for next level of care Conversation with the patient/family Will the patient be returning to prior living situation with no new identified needs? Yes Based on the screening the DC plan for consideration is: Patient expects to be discharged to: Home or Self care no new needs Adequate Resources Available Adequate Resources Yes LULY spoke with Karla in patient's room. She stated the following: Current PCP: Dr. Crenshaw Current Pharm: Erick Maher Home Environment: ; Lives alone in an apartment Employment: retired Home DME: trach and oxygen (pt not sure which DME supplier) PLOF: ind HCPOA on file: No, declined information Current with Home Health: No Current with Homemaker Services: No Current Out Patient Services: none Anticipated D/C Plan: return home; pt declined HHC and is VERY noncompliant Anticipated D/C transportation: cab Initial [place] notice given on: 03/23/24 CM will continue to follow F CLINICAL DIETITIAN * Marcela Mcgill, SRAVAN - 03/23/2024 10:09 AM CST Called to bedside. Patient on room air SpO2 89-90%. Suctioned patient for scant clear secretions. F CLINICAL DIETITIAN * Nya Velasquez RN - 03/23/2024 2:23 AM CST Problem: Gas Exchange - Impaired Goal: Adequate oxygenation Outcome: Progressing Note: Patient currently on 55% oxygen via Venturi Mask over trach stoma site. Problem: Reduced risk for falls/injury Goal: Reduced Risk for Falls/Injury Outcome: Progressing Note: Patient aware of need to call for assistance prior to getting out of bed. Fall precautions inplace. Problem: Discharge Planning Goal: Knowledge of discharge instructions Outcome: Progressing Note: Case management, MD and respiratory therapist to evaluate patient needs prior to discharge with recent multiple ED visits and admissions to hospital. F CLINICAL DIETITIAN documented in this encounter H&P Notes * Frances Alcazar MD - 03/23/2024 7:30 AM CST Attending Provider: Frances Alcazar MD PCP: JAYSON CRENSHAW MD Karla Lopez is an 73-year-old female. Reason for Admission: Pneumonia HPI: Ms. 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 Patient has been admitted and returned to ED several times over the past few weeks. Is historically non compliant with all of her medications and trach care at home. In the ED, Ms. Lopez was found to have RLL pneumonia with hypoxia. She was admitted for CA- PNA and hypoxia. She was recently discharged 03/19/24 on 10 day course of augmentin with 5 day course of azithromycin and prednisone. Unclear if she took these medications at home. This morning, Ms. Lopez is quite irritable. Was able to be weaned off oxygen this morning. Reported that she wanted her continuous pulse ox removed. When this request was denied due to continue need for monitoring oxygen levels, Ms. Lopez threw her continuous pulse ox at procedure writer. It was explained to her that this behavior would not be tolerated. Past Medical History: Diagnosis Date ASCUS with positive high risk HPV cervical Atherosclerosis of abdominal aorta ([facility]) 08/09/2019 Benign neoplasm of colon Bile duct obstruction ([facility]) 03/26/2017 Last Assessment & Plan: Patient denies jaundice, abdominal pain but recent weight loss. 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 Malignancy, scar, ampullary stenosis, stone. She will need ERCP but alsoEUS with FNA based on ERCP findings. We do not have EUS here but will refer to [facility] and they can do both Calculus of gallbladder with acute on chronic cholecystitis 08/09/2019 Cold agglutinin disease ([facility]) Common bile duct dilatation 08/09/2019 COPD (chronic obstructive pulmonary disease) ([facility]) Depression Diverticulosis DM2 (diabetes mellitus, type 2) ([facility] Emphysema of lung ([facility]) G tube feedings ([facility]) History of throat cancer Hyperlipidemia Hypertension, benign Hypothyroidism Multinodular goiter Other closed nondisplaced fracture of proximal end of left humerus, initial encounter 01/04/2021 PVD (peripheral vascular disease) ([facility]) Smoker unmotivated to quit Allergies: No Known Allergies Social History Tobacco Use Smoking status: Every Day Current packs/day: 0.50 Types: Cigarettes Smokeless tobacco: Never Substance Use Topics Alcohol use: Yes Comment: Occasional Past Surgical History: Procedure Laterality Date EYE SURGERY GASTROSTOMY TUBE HEMORRHOIDECTOMY HYSTERECTOMY LAP,CHOLECYSTECTOMY 08/11/2019 ED to admission - Dr. De Jesus LARYNGECTOMY TRACHEOSTOMY Family History Problem Relation Name Age of Onset Lung Cancer Father Heart Disease Other [place] Other Breast Cancer Other Travel Exposure: No current facility-administered medications on file prior to encounter. Current Outpatient Medications on File Prior to Encounter Medication Sig albuterol (2.5 MG/3ML) 0.083% nebulizer solution albuterol sulfate HFA 108 (90 Base) MCG/ACT inhaler Inhale 1 puff into the lungs every 6 (six) hours as needed for Wheezing. amoxicillin-clavulanate (AUGMENTIN) 875-125 MG tablet Take 1 tablet (875 mg total) by mouth every 12 (twelve) hours for 10 days. atorvastatin (LIPITOR) 20 MG tablet Take 1 tablet (20 mg total) by mouth daily. azithromycin (ZITHROMAX) 250 MG tablet Take 2 tablets by mouth on day one then 1 daily for four days. levothyroxine (SYNTHROID) 125 MCG tablet Take 1 tablet (125 mcg total) by mouth. mirtazapine 15 MG tablet Take 1 tablet (15 mg total) by mouth daily. omeprazole (PRILOSEC) 20 MG capsule Take 1 capsule (20 mg total) by mouth daily. predniSONE (DELTASONE) 20 MG tablet Take 2 tablets (40 mg total) by mouth daily for 10 days. traMADol (ULTRAM) 50 MG tablet Indications: Acute Pain < 7 Day Supply 1-2 tabs po q6 hours prn pain Blood pressure (!) 144/48, pulse 62, temperature 95.7 ??F (35.4 ??C), temperature source Tympanic, resp. rate 20, height 1.676 m (5' 6 ), weight 64.3 kg (141 lb 12.8 oz), SpO2 99%. Review of Systems Constitutional: Negative for chills and fever. HENT: Negative for congestion and sore throat. Eyes: Negative for blurred vision and double vision. Respiratory: Positive for cough and shortness of breath. Cardiovascular: Negative for chest pain and palpitations. Gastrointestinal: Negative for diarrhea and vomiting. Genitourinary: Negative for dysuria and urgency. Musculoskeletal: Negative for myalgias and neck pain. Skin: Negative for itching and rash. Neurological: Negative for focal weakness and headaches. Psychiatric/Behavioral: Negative for depression and suicidal ideas. Physical Exam Vitals and nursing note reviewed. Constitutional: Appearance: Normal appearance. HENT: Head: Normocephalic and atraumatic. Right Ear: External ear normal. Left Ear: External ear normal. Nose: Nose normal. Mouth/Throat: Mouth: Mucous membranes are moist. Pharynx: Oropharynx is clear. Eyes: Conjunctiva/sclera: Conjunctivae normal. Pupils: Pupils are equal, round, and reactive to light. Cardiovascular: Rate and Rhythm: Normal rate and regular rhythm. Pulses: Normal pulses. Pulmonary: Effort: Pulmonary effort is normal. Breath sounds: Rhonchi present. Abdominal: General: Bowel sounds are normal. Palpations: Abdomen is soft. Musculoskeletal: General: Normal range of motion. Cervical back: Normal range of motion and neck supple. Skin: General: Skin is warm and dry. Capillary Refill: Capillary refill takes less than 2 seconds. Neurological: General: No focal deficit present. Mental Status: She is alert and oriented to person, place, and time. Psychiatric: Mood and Affect: Mood normal. Behavior: Behavior normal. Assessment/Plan: #CA-PNA, #COPD Exacerbation, #Acute on Chronic Hypoxic Respiratory Failure, #Tracheostomy in place -trach care per RT -patient reports she is not doing any trach care or suctioning at home -humidified air for comfort -will need trach teaching as she seems to be completely unaware of how to care for her trach at home -home augmentin, prednisone dosing, same as time of discharge on 03/19 #GERD -continue home pantoprazole 20mg qDay #Hypothyroid -continue home levothyroxine 125mcg qAM #HLD -continue home atorvastatin 20mg qHS Code: Full Diet: general DVT Prophylaxis: lovenox Dispo: FRANCES ALCAZAR MD 03/23/2024 F CLINICAL DIETITIAN documented in this encounter Nursing Notes * Yun Santos RN - 03/23/2024 6:25 PM CST Called cab to confirm that patient was still on the list to be transported home, states they will be here in 5 minutes. F CLINICAL DIETITIAN * Ysabel Milton RN - 03/23/2024 5:08 PM CST [facility] called for transport home. F CLINICAL DIETITIAN documented in this encounter ED Notes * Cecy Foster DO - 03/23/2024 5:18 PM CST Chief Complaint Chief Complaint Patient presents with Shortness Of Breath History of Present Illness Patient is a 73 yo F here for sob Patient afebrile with mild hypoxia Patient well known to department Patient is tracheostomy dependent s/p cancer therapies Patient was recently discharged after course of pneumonia No longer smoking RT suctioned and patient persistently 84% on pulse ox at rest Patient unfortunately dose not have home PRN oxygen and or does not qualify for it anymore this is not completely clear Family at bedside No chest pain Shortness Of Breath Medical History ALLERGIES: Review of patient's allergies indicates: No Known Allergies MEDICATIONS: Prior to Admission medications Medication Sig Start Date End Date Taking? Authorizing Provider azithromycin (ZITHROMAX) 250 MG tablet Take 2 tablets by mouth on day one then 1 daily for four days. 03/24/24 03/28/24 Yes Jessica Levine, ANP-BC albuterol (2.5 MG/3ML) 0.083% nebulizer solution 02/19/20 [facility] albuterol sulfate HFA 108 (90 Base) MCG/ACT inhaler Inhale 1 puff into the lungs every 6 (six) hours as needed for Wheezing. Doc [facility] amoxicillin-clavulanate (AUGMENTIN) 875-125 MG tablet Take 1 tablet (875 mg total) by mouth every 12 (twelve) hours for 10 days. 03/19/24 03/29/24 Frances Alcazar MD atorvastatin (LIPITOR) 20 MG tablet Take 1 tablet (20 mg total) by mouth daily. 02/24/23 Default History Genericprovider azithromycin (ZITHROMAX) 250 MG tablet Take 2 tablets by mouth on day one then 1 daily for four days. 03/19/24 03/24/24 Frances Alcazar MD levothyroxine (SYNTHROID) 125 MCG tablet Take 1 tablet (125 mcg total) by mouth. 02/24/23 Default History Genericprovider mirtazapine 15 MG tablet Take 1 tablet (15 mg total) by mouth daily. 11/20/20 [facility] omeprazole (PRILOSEC) 20 MG capsule Take 1 capsule (20 mg total) by mouth daily. 03/20/23 Default History Genericprovider predniSONE (DELTASONE) 20 MG tablet Take 2 tablets (40 mg total) by mouth daily for 10 days. 03/19/24 03/29/24 Frances Alcazar MD traMADol (ULTRAM) 50 MG tablet Indications: Acute Pain < 7 Day Supply 1-2 tabs po q6 hours prn pain 03/21/24 Demetrice Bose MD PAST MEDICAL HISTORY: Past Medical History: Diagnosis Date ASCUS with positive high risk HPV cervical Atherosclerosis of abdominal aorta (CMS/HCC) 08/09/2019 Benign neoplasm of colon Bile duct obstruction (CMS/HCC) 03/26/2017 Last Assessment & Plan: Patient denies jaundice, abdominal pain but recent weight loss. 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 Malignancy, scar, ampullary stenosis, stone. She will need ERCP but alsoEUS with FNA based on ERCP findings. We do not have EUS here but will refer to [facility] and they can do both Calculus of gallbladder with acute on chronic cholecystitis 08/09/2019 Cold agglutinin disease (CMS/HCC HHS/HCC) Common bile duct dilatation 08/09/2019 COPD (chronic obstructive pulmonary disease) (CMS/HCC HHS/HCC) Depression Diverticulosis DM2 (diabetes mellitus, type 2) (CMS/HCC HHS/HCC) Emphysema of lung (CMS/HCC HHS/HCC) G tube feedings (CMS/HCC HHS/HCC) History of throat cancer Hyperlipidemia Hypertension, benign Hypothyroidism Multinodular goiter Other closed nondisplaced fracture of proximal end of left humerus, initial encounter 01/04/2021 PVD (peripheral vascular disease) (CMS/HCC) Smoker unmotivated to quit PAST SURGICAL HISTORY: Past Surgical History: Procedure Laterality Date EYE SURGERY GASTROSTOMY TUBE HEMORRHOIDECTOMY HYSTERECTOMY LAP,CHOLECYSTECTOMY 08/11/2019 ED to admission - Dr. De Jesus LARYNGECTOMY TRACHEOSTOMY FAMILY HISTORY: Family History Problem Relation Name Age of Onset Lung Cancer Father Heart Disease Other [place] Other Breast Cancer Other SOCIAL HISTORY: Social History Tobacco Use Smoking status: Every Day Current packs/day: 0.50 Types: Cigarettes Smokeless tobacco: Never Vaping Use Vaping status: Never Used Substance Use Topics Alcohol use: Yes Comment: Occasional Drug use: No Review of Systems Review of Systems Physical Exam Filed Vitals: 03/23/24 0938 03/23/24 0950 03/23/24 1007 03/23/24 1303 BP: 136/45 (!) 154/21 Pulse: (!) 58 74 Resp: 20 (!) 52 20 20 Temp: 96.4 ??F (35.8 ??C) 97 ??F (36.1 ??C) TempSrc: Tympanic Tympanic SpO2: 90% 90% (P) 90% Weight: Height: Physical Exam Vitals and nursing note reviewed. Constitutional: Appearance: Normal appearance. HENT: Head: Normocephalic and atraumatic. Right Ear: External ear normal. Left Ear: External ear normal. Nose: Nose normal. Mouth/Throat: Mouth: Mucous membranes are dry. Pharynx: Oropharynx is clear. Eyes: Extraocular Movements: Extraocular movements intact. Conjunctiva/sclera: Conjunctivae normal. Cardiovascular: Rate and Rhythm: Normal rate and regular rhythm. Pulses: Normal pulses. Heart sounds: Normal heart sounds. Comments: [facility] Pulmonary: Effort: Pulmonary effort is normal. No respiratory distress. Breath sounds: No stridor. Wheezing and rhonchi present. Abdominal: General: Bowel sounds are normal. Palpations: Abdomen is soft. Musculoskeletal: General: No deformity or signs of injury. Normal range of motion. Cervical back: Normal range of motion and neck supple. Skin: General: Skin is warm and dry. Capillary Refill: Capillary refill takes less than 2 seconds. Neurological: General: No focal deficit present. Mental Status: She is alert and oriented to person, place, and time. Psychiatric: Mood and Affect: Mood normal. Behavior: Behavior normal. Diagnostic Studies / Procedures ELECTROCARDIOGRAMS: Results for orders placed or performed during the hospital encounter of 03/22/24 ECG 12 lead Narrative [place] [id number] [facility] [place] [address] Test Date: 2024-03-22 Pat Name: KARLA LOPEZ Department: 3 Room: EXAM 202 Gender: Female Operating Room Orderly: EDSFL : 1950 Requested By: CECY FOSTER Order Number: [id number] Reading MD: Skyler Celis Measurements Intervals [place] Rate: 69 P: 50 ID: [id number] QRS: 4 QRSD: 95 T: 107 QT: 364 QTc: 391 Interpretive Statements SINUS RHYTHM POSSIBLE LEFT ATRIAL ENLARGEMENT NONSPECIFIC ST & T-WAVE ABNORMALITY F CLINICAL DIETITIAN LABORATORY STUDIES: Results for orders placed or performed during the hospital encounter of 03/22/24 CBC W/DIFF AUTOMATED Result Value Ref Range WBC 4.20 4.00 - 10.80 x10'3/uL RBC 4.35 4.10 - 5.40 x10'6/uL HGB 12.3 12.0 - 16.0 G/DL HCT 34.2 (L) 36.0 - 47.0 % MCV 78.6 78.0 - 100.0 FL MCH 28.3 27.0 - 31.0 PG MCHC 36.0 33.0 - 36.0 G/DL RDW 17.2 (H) 11.5 - 14.5 % PLT 225 150 - 350 x10'3/uL MPV 10.1 7.4 - 10.4 FL CBC COMMENT NORMAL REFERENCE RANGE NOT ESTABLISHED FOR THE PROPORTIONAL LEUKOCYTE DIFFERENTIAL. NEUTROPHILS % 64.3 % LYMPHOCYTES % 17.6 % MONOCYTES % 16.2 % EOSINOPHILS % 0.7 % BASOPHILS % 0.5 % IMMATURE GRANS % 0.7 % NRBC % 0.0 % ABS. NEUTROPHILS 2.70 1.60 - 8.30 x10'3/uL ABS. LYMPHOCYTES 0.74 (L) 0.80 - 4.70 x10'3/uL ABS. MONOCYTES 0.68 0.00 - 1.50 x10'3/uL ABS. EOSINOPHILS 0.03 0.00 - 0.40 x10'3/uL ABS. BASOPHILS 0.02 0.00 - 0.20 x10'3/uL ABS. IMMATURE GRANULOCYTES 0.03 0.00 - 0.03 x10'3/uL ABS. NUCLEATED RBC'S 0.00 0.00 - 0.01 x10'3/uL COMPREHENSIVE METABOLIC PANEL Result Value Ref Range SODIUM S/P/B 126 (L) 136 - 145 MMOL/L POTASSIUM S/P/B 3.2 (L) 3.5 - 5.1 MMOL/L CHLORIDE S/P/B 90 (L) 98 - 107 MMOL/L CO2 25.8 21.0 - 32.0 MMOL/L GLUCOSE 87 70 - 99 MG/DL BUN 13 6 - 24 MG/DL CREATININE S/P/B 1.00 0.55 - 1.02 MG/DL CALCIUM S/P/B 8.2 (L) 8.4 - 10.5 MG/DL BILIRUBIN TOTAL S/P/B 0.7 0.2 - 1.0 MG/DL ALKALINE PHOSPHATASE S/P/B 129 55 - 142 U/L AST 36 15 - 37 U/L ALT 31 14 - 59 U/L TOTAL PROTEIN S/P/B 6.9 6.4 - 8.2 G/DL ALBUMIN S/P/B 3.4 3.4 - 5.0 G/DL ANION GAP 10.2 5.0 - 15.0 MMOL/L OSMOLALITY (CALC) 261 MOSM/KG GFR ESTIMATE 59 (L) >89 ML/MIN/1.73 M2 GFR NOTES GFR REFERENCES: TROPONIN, QUANT Result Value Ref Range TROPONIN I HIGH SENSITIVITY 14 0 - 51 ng/L CBC W/DIFF AUTOMATED Result Value Ref Range WBC 4.47 4.00 - 10.80 x10'3/uL RBC 3.85 (L) 4.10 - 5.40 x10'6/uL HGB 11.2 (L) 12.0 - 16.0 G/DL HCT 31.1 (L) 36.0 - 47.0 % MCV 80.8 78.0 - 100.0 FL MCH 29.1 27.0 - 31.0 PG MCHC 36.0 33.0 - 36.0 G/DL RDW 17.4 (H) 11.5 - 14.5 % PLT 188 150 - 350 x10'3/uL MPV 11.3 (H) 7.4 - 10.4 FL CBC COMMENT NORMAL REFERENCE RANGE NOT ESTABLISHED FOR THE PROPORTIONAL LEUKOCYTE DIFFERENTIAL. NEUTROPHILS % 71.9 % LYMPHOCYTES % 6.9 % MONOCYTES % 17.7 % EOSINOPHILS % 1.8 % BASOPHILS % 0.4 % IMMATURE GRANS % 1.3 % NRBC % 0.0 % ABS. NEUTROPHILS 3.21 1.60 - 8.30 x10'3/uL ABS. LYMPHOCYTES 0.31 (L) 0.80 - 4.70 x10'3/uL ABS. MONOCYTES 0.79 0.00 - 1.50 x10'3/uL ABS. EOSINOPHILS 0.08 0.00 - 0.40 x10'3/uL ABS. BASOPHILS 0.02 0.00 - 0.20 x10'3/uL ABS. IMMATURE GRANULOCYTES 0.06 (H) 0.00 - 0.03 x10'3/uL ABS. NUCLEATED RBC'S 0.00 0.00 - 0.01 x10'3/uL COMPREHENSIVE METABOLIC PANEL Result Value Ref Range SODIUM S/P/B 131 (L) 136 - 145 MMOL/L POTASSIUM S/P/B 2.7 (LL) 3.5 - 5.1 MMOL/L CHLORIDE S/P/B 92 (L) 98 - 107 MMOL/L CO2 26.4 21.0 - 32.0 MMOL/L GLUCOSE 125 (H) 70 - 99 MG/DL BUN 16 6 - 24 MG/DL CREATININE S/P/B 1.05 (H) 0.55 - 1.02 MG/DL CALCIUM S/P/B 8.0 (L) 8.4 - 10.5 MG/DL BILIRUBIN TOTAL S/P/B 0.4 0.2 - 1.0 MG/DL ALKALINE PHOSPHATASE S/P/B 112 55 - 142 U/L AST 28 15 - 37 U/L ALT 26 14 - 59 U/L TOTAL PROTEIN S/P/B 6.1 (L) 6.4 - 8.2 G/DL ALBUMIN S/P/B 3.0 (L) 3.4 - 5.0 G/DL ANION GAP 12.6 5.0 - 15.0 MMOL/L OSMOLALITY (CALC) 275 MOSM/KG GFR ESTIMATE 55 (L) >89 ML/MIN/1.73 M2 GFR NOTES GFR REFERENCES: IMAGING STUDIES XR CHEST PORTABLE Final Result by User, [id number] (03/23 745) [address] [place] [address] 03/23/2024, 7:17 AM. HISTORY: Right lower lobe pneumonia. Follow-up. EXAM: Portable AP chest. Correlation to study 03/21/[address] imaging to 05/06/2024. FINDINGS: Qyrgkd-y-Reik catheter is present entering the chest from [...] effusion. No pneumothorax. Arthritic changes both shoulders. IMPRESSION: Previous faint subpleural infiltrate in the lateral right lower lung on CT 03/22/2024 not apparent on today's chest radiograph. 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 Referred By: Interpreted By: Koffi Moralez MD, 03/23/2024 7:43 AM CTA CHEST PE PROTOCOL Final Result by User, [email or web address] (03/22 2032) [address] [place] [address] EXAMINATION: CTA CHEST WITH CONTRAST, PULMONARY EMBOLISM [...] was not present on the prior exam. IMPRESSION: 1. 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 Alcazar agrees Patient placed on observation Amount and/or Complexity of Data Reviewed Labs: ordered. Radiology: ordered. ECG/medicine tests: ordered. Risk Decision regarding hospitalization. ED Course as of 03/23/24 1722 FriMar 22, 2024 [address] test pending [RS] 2234 Salt tabs ordered [RS] 2244 Trial 1 hour neb [RS] ED Course User Index [RS] Cecy Foster DO Clinical Impression Hypoxia (Primary) Pneumonia Disposition: Admit Cecy Foster DO 03/23/24 1722 F CLINICAL DIETITIAN * Jessica Boyce RN - 03/22/2024 7:10 PM CST PT WAS dc FOR SFL YESTERDAY AND IS STILL HAVING SOB PT ARRIVAL SPO2 WAS 88% RT CONSULTED. F CLINICAL DIETITIAN documented in this encounter Plan of Treatment Pending Results Name Type Priority Associated Diagnoses Date /Time BLOOD CULTURE #1 Microbiology STAT 2024 12:10 AM CHIEF CLINICAL DIETITIAN documented as of this encounter Goals Goal Patient Goal Type Associated Problems Recent Progress Patient-Stated? Author Safety Patient/family will have appropriate support at home upon discharge General Windy Harman LSW documented as of this encounter Procedures Procedure Name Priority Date/Time Associated Diagnosis Comments XR CHEST PORTABLE STAT 03/23/2024 7:2 8 AM CHIEF CLINICAL DIETITIAN COMPREHENSIVE METABOLIC PANEL STAT 03/23/2024 4:40 AM CHIEF CLINICAL DIETITIAN CBC W/DIFF AUTOMATED STAT 03/23/2024 4:40 AM CHIEF CLINICAL DIETITIAN CULTURE, BACTERIA, BLOOD STAT 03/23/2024 12:10 AM CHIEF CLINICAL DIETITIAN ECG 12-LEAD STAT 03/22/2024 8:51 PM CHIEF CLINICAL DIETITIAN CTA CHEST PE PROTOCOL STAT 03/22/2024 7:46 PM CHIEF CLINICAL DIETITIAN COMPREHENSIVE METABOLIC PANEL STAT 03/22/2024 6:57 PM CHIEF CLINICAL DIETITIAN CBC W/DIFF AUTOMATED STAT 03/22/2024 6:57 PM CHIEF CLINICAL DIETITIAN TROPONIN, QUANT STAT 03/22/2024 6:57 PM CHIEF CLINICAL DIETITIAN documented in this encounter Results * XR CHEST PORTABLE (03/23/2024 7:28 AM CHIEF CLINICAL DIETITIAN) Anatomical Region Laterality Modality Chest Radiographic Belinda ging 03/23/2024 7:43 AM CHIEF CLINICAL DIETITIAN Impressions 03/23/2024 7:45 AM CHIEF CLINICAL DIETITIAN IMPRESSION: Previous faint subpleural infiltrate in the lateral right lower lung on CT 03/22/2024 not apparent on today's chest radiograph. 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 Referred By: Interpreted By: Koffi Moralez MD, 03/23/2024 7:43 AM Narrative 03/23/2024 7:45 AM CHIEF CLINICAL DIETITIAN [address] [place] [address] 03/23/2024, 7:17 AM. HISTORY: Right lower lobe pneumonia. Follow-up. EXAM: Portable AP chest. Correlation to study 03/21/[address] imaging to 05/06/2024. FINDINGS: Omshcb-n-Pick catheter is present entering the chest from [...] Procedure Note Charli Moralez MD - 03/23/2024 [place] [id number] [facility] [place] [address] 03/23/2024, 7:17 AM. HISTORY: Right lower lobe pneumonia. Follow-up. EXAM: Portable AP chest. Correlation to study 03/21/[address] imaging to05/06/2024. FINDINGS: Ofeyfm-q-Lutd catheter is present entering the chest from [...] Moralez MD, 03/23/2024 7:43 AM Cecy Foster DO GENERAL IMAGING Final Result * (ABNORMAL) COMPREHENSIVE METABOLIC PANEL (03/23/2024 4:40 AM [facility]) SODIUM S/P/B 131(L) 136 - 145 MMOL/L 03/23/2024 5:38 AM [facility] POTASSIUM S/P/B 2.7(LL) 3.5 - 5.1 MMOL/L 03/23/2024 5:38 AM [facility] Comment: Critical Result(s) Called to and read back by: ANANYA CAMPBELL at: 05:37:16 03/23/2024 by EKLS. CHLORIDE S/P/B 92(L) 98 - 107 MMOL/L 03/23/2024 5:38 AM [facility] CO2 26.4 21.0 - 32.0 MMOL/L 03/23/2024 5:38 AM [facility] GLUCOSE 125(H) 70 - 99 MG/DL 03/23/2024 5:38 AM [facility] Comment: FASTING GLUCOSE 100 TO 125 MG/DL IS CONSISTENT WITH IMPAIRED FASTING GLUCOSE. FASTING GLUCOSE >125 MG/DL IS CONSISTENT WITH DIABETES. RANDOM GLUCOSE >200 MG/DL WITH HYPERGLYCEMIC SYMPTOMS IS CONSISTENT WITH DIABETES. PER ADA GUIDELINES BUN 16 6 - 24 MG/DL 03/23/2024 5:38 AM [facility] CREATININE S/P/B 1.05(H) 0.55 - 1.02 MG/DL 03/23/2024 5:38 AM [facility] CALCIUM S/P/B 8.0(L) 8.4 - 10.5 MG/DL 03/23/2024 5:38 AM [facility] BILIRUBIN TOTAL S/P/B 0.4 0.2 - 1.0 MG/DL 03/23/2024 5:38 AM [facility] Comment: THIS ASSAY IS NOT RECOMMENDED FOR PATIENTS UNDERGOING TREATMENT WITH ELTROMBOPAG DUE TO THE POTENTIAL FOR FALSELY ELEVATED RESULTS. ALKALINE PHOSPHATASE S/P/B 112 55 - 142 U/L 03/23/2024 5:38 AM [facility] AST 28 15 - 37 U/L 03/23/2024 5:38 AM [facility] ALT 26 14 - 59 U/L 03/23/2024 5:38 AM [facility] TOTAL PROTEIN S/P/B 6.1(L) 6.4 - 8.2 G/DL 03/23/2024 5:38 AM [facility] ALBUMIN S/P/B 3.0(L) 3.4 - 5.0 G/DL 03/23/2024 5:38 AM [facility] ANION GAP 12.6 5.0 - 15.0 MMOL/L 03/23/2024 5:38 AM [facility] OSMOLALITY (CALC) 275 MOSM/KG 025 5:38 AM [facility] Comment:REFERENCE RANGE NOT ESTABLISHED GFR ESTIMATE 55(L) >89 ML/MIN/1. 73 M2 03/23/2024 5:38 AM [facility] GFR NOTES GFR REFERENCE S: 03/23/2024 5:38 AM [facility] Comment: THE ESTIMATED GFR IS [...] FAILURE: <15 ml/min/1.73 m2 03/23/2024 4:40 AM CHIEF CLINICAL DIETITIAN us Cecy Foster DO LABORATORY Final Result [facility] [address] [place] [address], * (ABNORMAL) CBC W/DIFF AUTOMATED (03/23/2024 4:40 AM CHIEF CLINICAL DIETITIAN) WBC 4.47 4.00 - 10.80 x10'3/uL 03/23/2024 5:57 AM [facility] RBC 3.85(L) 4.10 - 5.40 x10'6/uL 03/23/2024 5:57 AM [facility] HGB 11.2(L) 12.0 - 16.0 G/DL 03/23/2024 5:57 AM [facility] HCT 31.1(L) 36.0 - 47.0 % 03/23/2024 5:57 AM [facility] MCV 80.8 78.0 - 100.0 FL 03/23/2024 5:57 AM [facility] MCH 29.1 27.0 - 31.0 PG 03/23/2024 5:57 AM [facility] MCHC 36.0 33.0 - 36.0 G/DL 03/23/2024 5:57 AM [facility] RDW 17.4(H) 11.5 - 14.5 % 03/23/2024 5:57 AM [facility] PLT 188 150 - 350 x10'3/uL 03/23/2024 5:57 AM [facility] MPV 11.3(H) 7.4 - 10.4 FL 03/23/2024 5:57 AM [facility] CBC COMMENT NORMAL REFERENCE RANGE NOT ESTABLISHED FOR THE PROPORTIONAL LEUKOCYTE DIFFERENTIAL. 03/23/2024 5:57 AM [facility] NEUTROPHILS % 71.9 % 03/23/2024 5:57 AM [facility] LYMPHOCYTES % 6.9 % 03/23/2024 5:57 AM [facility] MONOCYTES % 17.7 % 03/23/2024 5:57 AM [facility] EOSINOPHILS % 1.8 % 03/23/2024 5:57 AM [facility] BASOPHILS % 0.4 % 03/23/2024 5:57 AM [facility] IMMATURE GRANS % 1.3 % 03/23/19 5:57 AM [facility] NRBC % 0.0 % 03/23/2024 5:57 AM CHIEF CLINICAL DIETITIAN [facility] ABS. NEUTROPHILS 3.21 1.60 - 8.30 x10'3/uL 03/23/2024 5:57 AM CHIEF CLINICAL DIETITIAN [facility] ABS. LYMPHOCYTES 0.31(L) 0.80 - 4.70 x10'3/uL 03/23/2024 5:57 AM CHIEF CLINICAL DIETITIAN [facility] ABS. MONOCYTES 0.79 0.00 - 1.50 x10'3/uL 03/23/2024 5:57 AM CHIEF CLINICAL DIETITIAN [facility] ABS. EOSINOPHILS 0.08 0.00 - 0.40 x10'3/uL 03/23/2024 5:57 AM CHIEF CLINICAL DIETITIAN [facility] ABS. BASOPHILS 0.02 0.00 - 0.20 x10'3/uL 03/23/2024 5:57 AM CHIEF CLINICAL DIETITIAN [facility] ABS. IMMATURE GRANULOCYTES 0.06(H) 0.00 - 0.03 x10'3/uL 03/23/2024 5:57 AM CHIEF CLINICAL DIETITIAN [facility] ABS. NUCLEATED RBC'S 0.00 0.00 - 0.01 x10'3/uL 03/23/2024 5:57 AM CHIEF CLINICAL DIETITIAN [facility] 03/23/2024 4:40 AM CHIEF CLINICAL DIETITIAN [facility] LABORATORY Final Result [place] [address] [place] [address], * ECG 12 lead (03/22/2024 8:51 PM CHIEF CLINICAL DIETITIAN) 03/22/2024 8:51 PM CHIEF CLINICAL DIETITIAN Narrative [facility] - 03/22/2024 8:[address] [place] [address] Test Date: 2024-03-22 Pat Name: KARLA LOPEZ Department: 3 Room: EXAM 202 Gender: Female Operating Room Orderly: SARAH : 1950 Requested By: CECY FOSTER Order Number: [id number] Reading MD: Skyler Celis Measurements Intervals [place] Rate: 69 P: 50 ID: [id number] QRS: 4 QRSD: 95 T: 107 QT: 364 QTc: 391 Interpretive Statements SINUS RHYTHM POSSIBLE LEFT ATRIAL ENLARGEMENT NONSPECIFIC ST & T-WAVE ABNORMALITY F CLINICAL DIETITIAN Procedure Note Skyler Celis MD - 03/22/2024 [facility] [address] [facility] [place] [address] Test Date: 2024-03-22 Pat Name: KARLA LOPEZ Department: 3 Room: EXAM 202 Gender: Female Operating Room Orderly: [facility] : 1950 Requested By: CECY FOSTER Order Number: [id number] Reading MD: Skyler Celis Measurements Intervals [place] Rate: 69 P: 50 ID: [id number] QRS: 4 QRSD: 95 T: 107 QT: 364 QTc: 391 Interpretive Statements SINUS RHYTHM POSSIBLE LEFT ATRIAL ENLARGEMENT NONSPECIFIC ST & T-WAVE ABNORMALITY F CLINICAL DIETITIAN Cecy Foster DO ECG ORDERABLES Final Result [facility] * CTA CHEST PE PROTOCOL (03/22/2024 7:46 PM CHIEF CLINICAL DIETITIAN) Anatomical Region Laterality Modality Chest Computed Tomogra phy 03/22/2024 8:17 PM CHIEF CLINICAL DIETITIAN Impressions 03/22/2024 8:32 PM CHIEF CLINICAL DIETITIAN IMPRESSION: 1. No evidence of pulmonary embolus. [...] 03/22/2024 8:17 PM Narrative 03/22/2024 8:32 PM CHIEF CLINICAL DIETITIAN [address] [place] [address] EXAMINATION: CTA CHEST WITH CONTRAST, PULMONARY EMBOLISM [...] Procedure Note Vaibhav Child MD - 03/22/[address] [place] [address] EXAMINATION: CTA CHEST WITH CONTRAST, PULMONARY EMBOLISM [...] By: Vaibhav Child MD, 03/22/2024 8:17 PM Cecy Foster DO CT Final Result * TROPONIN, QUANT (03/22/2024 6:57 PM CHIEF CLINICAL DIETITIAN) [facility] TROPONIN I HIGH SENSITIVITY 14 0 - 51 ng/L 03/22/2024 7:21 PM CHIEF CLINICAL DIETITIAN [facility] 03/22/2024 6:57 PM CHIEF CLINICAL DIETITIAN us Cecy Foster DO LABORATORY Final Result [facility] [address] [place] [address], * (ABNORMAL) COMPREHENSIVE METABOLIC PANEL (03/22/2024 6:57 PM CHIEF CLINICAL DIETITIAN) [facility] SODIUM S/P/B 126(L) 136 - 145 MMOL/L 03/22/2024 7:21 PM CHIEF CLINICAL DIETITIAN [facility] POTASSIUM S/P/B 3.2(L) 3.5 - 5.1 MMOL/L 03/22/2024 7:21 PM [facility] CHLORIDE S/P/B 90(L) 98 - 107 MMOL/L 03/22/2024 7:21 PM [facility] CO2 25.8 21.0 - 32.0 MMOL/L 03/22/2024 7:21 PM [facility] GLUCOSE 87 70 - 99 MG/DL 03/22/2024 7:21 PM [facility] Comment: FASTING GLUCOSE 100 TO 125 MG/DL IS CONSISTENT WITH IMPAIRED FASTING GLUCOSE. FASTING GLUCOSE >125 MG/DL IS CONSISTENT WITH DIABETES. RANDOM GLUCOSE >200 MG/DL WITH HYPERGLYCEMIC SYMPTOMS IS CONSISTENT WITH DIABETES. PER ADA GUIDELINES BUN 13 6 - 24 MG/DL 03/22/2024 7:21 PM [facility] CREATININE S/P/B 1.00 0.55 - 1.02 MG/DL 03/22/2024 7:21 PM [facility] CALCIUM S/P/B 8.2(L) 8.4 - 10.5 MG/DL 03/22/2024 7:21 PM [facility] BILIRUBIN TOTAL S/P/B 0.7 0.2 - 1.0 MG/DL 03/22/2024 7:21 PM [facility] Comment: THIS ASSAY IS NOT RECOMMENDED FOR PATIENTS UNDERGOING TREATMENT WITH ELTROMBOPAG DUE TO THE POTENTIAL FOR FALSELY ELEVATED RESULTS. ALKALINE PHOSPHATASE S/P/B 129 55 - 142 U/L 03/22/2024 7:21 PM [facility] AST 36 15 - 37 U/L 03/22/2024 7:21 PM [facility] ALT 31 14 - 59 U/L 03/22/2024 7:21 PM [facility] TOTAL PROTEIN S/P/B 6.9 6.4 - 8.2 G/DL 03/22/2024 7:21 PM [facility] ALBUMIN S/P/B 3.4 3.4 - 5.0 G/DL 03/22/2024 7:21 PM [facility] ANION GAP 10.2 5.0 - 15.0 MMOL/L 03/22/2024 7:21 PM CHIEF CLINICAL DIETITIAN [facility] OSMOLALITY (CALC) 261 MOSM/KG 025 7:21 PM CHIEF CLINICAL DIETITIAN [facility] Comment:REFERENCE RANGE NOT ESTABLISHED GFR ESTIMATE 59(L) >89 ML/MIN/1. 73 M2 03/22/2024 7:21 PM CHIEF CLINICAL DIETITIAN [facility] GFR NOTES GFR REFERENCE S: 03/22/2024 7:21 PM CHIEF CLINICAL DIETITIAN [facility] Comment: THE ESTIMATED GFR [...] ml/min/1.73 m2 G5,KIDNEY FAILURE: <15 ml/min/1.73 m2 03/22/2024 6:57 PM CHIEF CLINICAL DIETITIAN Cecy Foster DO LABORATORY Final Result [facility] [address] [id number], * (ABNORMAL) CBC W/DIFF AUTOMATED (03/22/2024 6:57 PM CHIEF CLINICAL DIETITIAN) WBC 4.20 4.00 - 10.80 x10'3/uL 03/22/2024 7:16 PM CHIEF CLINICAL DIETITIAN [facility] RBC 4.35 4.10 - 5.40 x10'6/uL 03/22/2024 7:16 PM CHIEF CLINICAL DIETITIAN [facility] HGB 12.3 12.0 - 16.0 G/DL 03/22/2024 7:16 PM CHIEF CLINICAL DIETITIAN [facility] HCT 34.2(L) 36.0 - 47.0 % 03/22/2024 7:16 PM CHIEF CLINICAL DIETITIAN [facility] MCV 78.6 78.0 - 100.0 FL 03/22/2024 7:16 PM [facility] MCH 28.3 27.0 - 31.0 PG 03/22/2024 7:16 PM [facility] MCHC 36.0 33.0 - 36.0 G/DL 03/22/2024 7:16 PM [facility] RDW 17.2(H) 11.5 - 14.5 % 03/22/2024 7:16 PM [facility] PLT 225 150 - 350 x10'3/uL 03/22/2024 7:16 PM [facility] MPV 10.1 7.4 - 10.4 FL 03/22/2024 7:16 PM [facility] CBC COMMENT NORMAL REFERENCE RANGE NOT ESTABLISHED FOR THE PROPORTIONAL LEUKOCYTE DIFFERENTIAL. 03/22/2024 7:16 PM [facility] NEUTROPHILS % 64.3 % 03/22/2024 7:16 PM [facility] LYMPHOCYTES % 17.6 % 03/22/2024 7:16 PM [facility] MONOCYTES % 16.2 % 03/22/2024 7:16 PM [facility] EOSINOPHILS % 0.7 % 03/22/2024 7:16 PM [facility] BASOPHILS % 0.5 % 03/22/2024 7:16 PM [facility] IMMATURE GRANS % 0.7 % 03/22/19 7:16 PM [facility] NRBC % 0.0 % 03/22/2024 7:16 PM [facility] ABS. NEUTROPHILS 2.70 1.60 - 8.30 x10'3/uL 03/22/2024 7:16 PM [facility] ABS. LYMPHOCYTES 0.74(L) 0.80 - 4.70 x10'3/uL 03/22/2024 7:16 PM [facility] ABS. MONOCYTES 0.68 0.00 - 1.50 x10'3/uL 03/22/2024 7:16 PM [facility] ABS. EOSINOPHILS 0.03 0.00 - 0.40 x10'3/uL 03/22/2024 7:16 PM CHIEF CLINICAL DIETITIAN [facility] ABS. BASOPHILS 0.02 0.00 - 0.20 x10'3/uL 03/22/2024 7:16 PM CHIEF CLINICAL DIETITIAN [facility] ABS. IMMATURE GRANULOCYTES 0.03 0.00 - 0.03 x10'3/uL 03/22/2024 7:16 PM CHIEF CLINICAL DIETITIAN [facility] ABS. NUCLEATED RBC'S 0.00 0.00 - 0.01 x10'3/uL 03/22/2024 7:16 PM CHIEF CLINICAL DIETITIAN [facility] 03/22/2024 6:57 PM CHIEF CLINICAL DIETITIAN Cecy Foster DO LABORATORY Final Result [facility] [address] [place] [address], documented in this encounter Visit Diagnoses Diagnosis Pneumonia- Primary Pneumonia, organism unspecified Hypoxia Hypoxemia Pneumonia Pneumonia, organism unspecified documented in this encounter Admitting Diagnoses Diagnosis Pneumonia Pneumonia, organism unspecified documented in this encounter Administered Medications Inactive Administered Medications - up to 3 most recent administrations Medication Order MAR Action Action Date Dose Rate Site albuterol (PROVENTIL) (2.5 MG/3ML) 0.083% nebulizer solution 7.5 mg 7.5 mg, Nebulization, Once RT, 1 dose, On Fri03/22/24 at 2300 Given 03/22/2024 10:56 PM CHIEF CLINICAL DIETITIAN 7.5 mg amoxicillin-clavulanate (AUGMENTIN) 875-125 MG tablet 875 mg 875 mg, Oral, Every 12 hours, 14 doses, First dose on Fri03/23/24 at 0800, Last dose on Fri03/29/24 at 2000 Given 03/23/2024 9:43 AM CHIEF CLINICAL DIETITIAN 875 mg atorvastatin (LIPITOR) tablet 20 mg 20 mg, Oral, Daily, First dose on Fri03/23/24 at 0900, Until Discontinued Given 03/23/2024 9:44 AM CHIEF CLINICAL DIETITIAN 20 mg azithromycin (ZITHROMAX) tablet 500 mg 500 mg, Oral, Once, 1 dose, On Fri03/23/24 at 0000 Given 03/23/2024 12:30 AM CHIEF CLINICAL DIETITIAN 500 mg azithromycin (ZITHROMAX) tablet 500 mg 500 mg, Oral, Daily, 5 doses, First dose on Fri03/23/24 at 1000, Last dose on Fri03/27/24 at 0900, Take 2 tablets by mouth on day one then 1 daily for four days. Given 03/23/2024 9:51 AM CHIEF CLINICAL DIETITIAN 500 mg cefTRIAXone (ROCEPHIN) 1 g in sodium chloride 0.9 % 50 mL IVPB 1 g, Intravenous, at 100 mL/hr, Once, 1 dose, On Fri03/23/24 at 0000 New Bag 03/23/2024 12:30 AM CHIEF CLINICAL DIETITIAN 1 g 100 mL/hr enoxaparin (LOVENOX) 40 MG/0.4ML syringe 40 mg 40 mg, Subcutaneous, Nightly (enoxaparin), First dose on Fri03/23/24 at 0015, Until Discontinued, Administer by deep SubQ injection alternating between the left or right anterolateral and left or right posterolateral abdominal wall. Given 03/23/2024 12:37 AM CHIEF CLINICAL DIETITIAN 40 mg Left Lower Abdomen ibuprofen (MOTRIN) tablet 600 mg 600 mg, Oral, Every 6 hours PRN, Mild pain (Scale 1 - 3), Starting on Fri03/23/24 at 0002, Until Fri03/23/24 at 0729 Given 03/23/2024 12:38 AM CHIEF CLINICAL DIETITIAN 600 mg iopamidol (ISOVUE-370) 76 % injection 94 mL 94 mL, Intravenous, IMG once as needed, Contrast, 1 dose, Starting on Fri03/22/24 at 1946, Until Fri03/22/24 at 1946 Given 03/22/2024 7:46 PM CHIEF CLINICAL DIETITIAN 94 mLs ipratropium-albuterol (DUONEB) 0.5-2.5 (3) MG/3ML nebulizer solution 3 mL 3 mL, Nebulization, Once RT, 1 dose, On Fri03/22/24 at 2300 Given 03/22/2024 10:57 PM CHIEF CLINICAL DIETITIAN 3 mLs ipratropium-albuterol (DUONEB) 0.5-2.5 (3) MG/3ML nebulizer solution 3 mL 3 mL, Nebulization, Every 6 hours PRN, Shortness of breath, Starting on Fri03/23/24 at 0002, Until Fri03/23/24 at 2035 levothyroxine (SYNTHROID) tablet 125 mcg 125 mcg, Oral, Daily (levothyroxine), First dose on Fri03/23/24 at 0600, Until Discontinued, Avoid iron, calcium, and antacids within 4 hours of administration. Given 03/23/2024 6:04 AM CHIEF CLINICAL DIETITIAN 125 mcg mirtazapine (REMERON) tablet 15 mg 15 mg, Oral, Daily, First dose on Fri03/23/24 at 0900, Until Discontinued Given 03/23/2024 9:44 AM CHIEF CLINICAL DIETITIAN 15 mg pantoprazole EC (PROTONIX) tablet 20 mg 20 mg, Oral, Daily, First dose on Fri03/23/24 at 0900, Until Discontinued, Do not break, chew, or crush. Given 03/23/2024 9:44 AM CHIEF CLINICAL DIETITIAN 20 mg potassium chloride CR (KLOR-CON M) tablet 40 mEq 40 mEq, Oral, Once, 1 dose, On Fri03/23/24 at 0600, Do not chew, crush, or suck on tablet. May break in half. May dissolve whole tablet in 120 mL of water and drink immediately. Given 03/23/2024 6:04 AM CHIEF CLINICAL DIETITIAN 40 mEq predniSONE (DELTASONE) tablet 40 mg 40 mg, Oral, Daily, First dose on Fri03/23/24 at 0900, Until Discontinued Given 03/23/2024 9:44 AM CHIEF CLINICAL DIETITIAN 40 mg sodium chloride tablet 1 g 1 g, Oral, Once, 1 dose, On Fri03/22/24 at 2245 Given 03/22/2024 11:12 PM CHIEF CLINICAL DIETITIAN 1 g documented in this encounter Active and Recently Administered Medications Times are shown in CHIEF CLINICAL DIETITIAN. Scheduled Medication Order 03/21/2024 03/22/2024 03/23/2024 albuterol (PROVENTIL) (2.5 MG/3ML) 0.083% nebulizer solution 7.5 mg (COMPLETED) 7.5 mg, Nebulization, Once RT, 1 dose, On Fri03/22/24 at 2300 2256 (Given - Provider: Jaren Holder, LEAD AUDITOR) amoxicillin-clavulanate (AUGMENTIN) 875-125 MG tablet 875 mg 875 mg, Oral, Every 12 hours, 14 doses, First dose on Fri03/23/24 at 0800, Last dose on Fri03/29/24 at 1999 0943 (Given - Provid er: Lucila Garay, Nurse Senior Java Architect II)1999 (Canceled Entry - Provider: Automatic Discharge Provider - Comment: Automatically canceled at discontinue of medication order) atorvastatin (LIPITOR) tablet 20 mg 20 mg, Oral, Daily, First dose on Fri03/23/24 at 0900, Until Discontinued 0944 (Given - Provid er: Lucila Garay, Nurse Senior Java Architect II) azithromycin (ZITHROMAX) tablet 500 mg (COMPLETED) 500 mg, Oral, Once, 1 dose, On Fri03/23/24 at 0000 0030 (Given - Provid er: Ananya Campbell RN) azithromycin (ZITHROMAX) tablet 500 mg 500 mg, Oral, Daily, 5 doses, First dose on Fri03/23/24 at 1000, Last dose on Fri03/27/24 at 0900, Take 2 tablets by mouth on day one then 1 daily for four days. 0951 (Given - Provid er: Lucila Garay, Nurse Senior Java Architect II) cefTRIAXone (ROCEPHIN) 1 g in sodium chloride 0.9 % 50 mL IVPB (COMPLETED) 1 g, Intravenous, at 100 mL/hr, Once, 1 dose, On Fri03/23/24 at 0000 0030 (New Bag - Prov ider: Ananya Campbell RN)0044 (Continued to Floor - Provider: Ananya Campbell RN)0053 (Infusion Stop Time - Provider: Nya Velasquez RN) enoxaparin (LOVENOX) 40 MG/0.4ML syringe 40 mg 40 mg, Subcutaneous, Nightly (enoxaparin), First dose on Fri03/23/24 at 0015, Until Discontinued, Administer by deep SubQ injection alternating between the left or right anterolateral and left or right posterolateral abdominal wall. 0037 (Given - Provid er: Ananya Campbell RN) ipratropium-albuterol (DUONEB) 0.5-2.5 (3) MG/3ML nebulizer solution 3 mL (COMPLETED) 3 mL, Nebulization, Once RT, 1 dose, On Fri03/22/24 at 2300 2257 (Given - Provider: Jaren Holder, LEAD AUDITOR) levothyroxine (SYNTHROID) tablet 125 mcg 125 mcg, Oral, Daily (levothyroxine), First dose on Fri03/23/24 at 0600, Until Discontinued, Avoid iron, calcium, and antacids within 4 hours of administration. 603 (Given - Provid er: Nya Velasquez RN) mirtazapine (REMERON) tablet 15 mg 15 mg, Oral, Daily, First dose on Fri03/23/24 at 0900, Until Discontinued 943 (Given - Provid er: Lucila Garay, Nurse Senior Java Architect II) pantoprazole EC (PROTONIX) tablet 20 mg 20 mg, Oral, Daily, First dose on Fri03/23/24 at 0900, Until Discontinued, Do not break, chew, or crush. 943 (Given - Provid er: Lucila Garay, Nurse Senior Java Architect II) potassium chloride CR (KLOR-CON M) tablet 40 mEq (COMPLETED) 40 mEq, Oral, Once, 1 dose, On Fri03/23/24 at 0600, Do not chew, crush, or suck on tablet. May break in half. May dissolve whole tablet in 120 mL of water and drink immediately. 603 (Given - Provid er: Nya Velasquez RN) predniSONE (DELTASONE) tablet 40 mg 40 mg, Oral, Daily, First dose on Fri03/23/24 at 0900, Until Discontinued 943 (Given - Provid er: Lucila Garay, Nurse Senior Java Architect II) sodium chloride tablet 1 g (COMPLETED) 1 g, Oral, Once, 1 dose, On Fri03/22/24 at 4248 3412 (Given - Provider: Sara Novoa RN) PRN Medication Order 03/21/2024 03/22/2024 03/23/2024 albuterol sulfate HFA 108 (90 Base) MCG/ACT inhaler 1 puff 1 puff, Inhalation, Every 6 hours PRN, Wheezing, Starting on Fri03/23/24 at 0728, Until Fri03/23/24 at 203 ibuprofen (MOTRIN) tablet 600 mg (CANCELED) 600 mg, Oral, Every 6 hours PRN, Mild pain (Scale 1 - 3), Starting on Fri03/23/24 at 0002, Until Fri03/23/24 at 0729 0038 (Given - Provid er: Ananya Campbell RN) iopamidol (ISOVUE-370) 76 % injection 94 mL (COMPLETED) 94 mL, Intravenous, IMG once as needed, Contrast, 1 dose, Starting on Fri03/22/24 at 1946, Until Fri03/22/24 at 194 194 (Given - Provider: Keiry Kilgore, RTR) ipratropium-albuterol (DUONEB) 0.5-2.5 (3) MG/3ML nebulizer solution 3 mL 3 mL, Nebulization, Every 6 hours PRN, Shortness of breath, Starting on Fri03/23/24 at 0002, Until Fri03/23/24 at 2035 documented in this encounter Care Teams Stock Feeder Relationship Specialty Start Date End Date Jayson Crenshaw MD [address] [place] [phone] PCP - General FAMILY PRACTICE 12/29/20 Brandt Rosas MD [address] [place] [phone] EP Filter Screen Cleaner CLINICAL CARDIAC ELECTROPHYSIOLOGY 04/07/20 documented as of this encounter
--- OUTSIDE RECORDS SUMMARY | 2024-03-24 22:40 | XMS_ITS | Clinical Summary ---
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 Malignancy, scar, ampullary stenosis, stone. She will need ERCP but also EUS with FNA based on ERCP findings. We do not have EUS here but will refer to [facility] and they can do both procedures, both patient and daughter agreeable. 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 Assessment & Plan (03/26/2017 10:06 AM PUPPET DEVELOPER): Denies dysphagia, treated with radiation Weight loss 03/26/2017 Assessment & Plan (03/26/2017 10:07 AM PUPPET DEVELOPER): Concerning for malignancy, ercp +/- eus based on abnormal mrcp Tobacco use 03/26/2017 Surgical History Surgery Date Site/Laterality Comments BIOPSY 05/03/2015 KULDEEP with VC biopsy HYSTERECTOMY Medical History Medical History Date Comments Throat cancer (HCC) 02/17/2015 Currently in remission Asthma CHF (congestive heart failure) (CMS/HCC) (HCC) Thyroid disease Anxiety and depression Hypertension Diabetes (HCC) Hyperlipidemia Family History Medical History Relation Name Comments Suicidality Father Heart attack Mother Relation Name Status Comments Father Mother Social History Tobacco Use Types Packs/Day Years [...] on file Legal Sex Female 11:02 AM PUPPET DEVELOPER Gender Identity Not on file Sexual Orientation Not on file Obstetrics History Last Filed Vital Signs Vital Sign Reading Time Taken Comments Blood Pressure 160/78 03/26/2017 9:37 AM PUPPET DEVELOPER Pulse 61 03/26/2017 9:37 AM PUPPET DEVELOPER Temperature 36.9 C (98.4 F) 03/26/2017 9:37 AM PUPPET DEVELOPER Respiratory Rate - - Oxygen Saturation 91% 08/22/2015 3:14 PM CDT Inhaled Oxygen Concentration - - Weight 61.2 kg (135 lb) 03/26/2017 9:37 AM PUPPET DEVELOPER Height 163.2 cm (5' 4.25 ) 03/26/2017 9:37 AM CS T Body Mass Index 22.99 03/26/2017 9:37 AM PUPPET DEVELOPER Plan of Treatment Not on file Insurance MEDICARE [place] MEDICARE [facility] Advance Directives For more information, please contact: [phone] Documents on File Type Date Recorded Patient Manager Of Transportation Expl anation ADVANCE DIRECTIVE 08/25/2015 12:00 AM POWER OF DATA SOFTWARE ENGINEER FINANCIAL/MEDICAL Care Teams Sales Service Coordinator Relationship Specialty Start Date End Date Jayson Lake MD PCP - General Family Medicine 03/04/17
--- OUTSIDE RECORDS SUMMARY | 2024-03-24 22:41 | XMS_ITS | Encounter Summary ---
Author Organization [facility] Address [address] [place] [address] Care Team Providers Care Gaming Dealer Name Role Phone Brandt Rosas MD Unavailable Jayson Lake MD Primary Care Provider [phone] Encounter Details Date Type Department Care Team (Late st Contact Info) Description 04/15/2023 EternoGen Message Enc [facility] [address], [facility] [address] [place] [address] Kylie Steele, [facility] [address] [facility] [place] [address] Visit Follow Up Social History Tobacco Use Types Packs/Day Years Used Date Smoking Tobacco: Every Day Cigarettes Smokeless Tobacco: Never Alcohol Use Standard Drinks/Week Comments Yes 0 (1 standard drink = 0.6 oz pur e alcohol) Occasional Comments No Sex and Gender Information Value Date Recorded Sex Assigned at Female 03/16/2024 6:02 PM EVENT MARKETING COORDINATOR Legal Sex Female 4:28 PM CDT Gender Identity Female 03/16/2024 6:02 PM EVENT MARKETING COORDINATOR Sexual Orientation Not on file documented as of this encounter Functional Status * RETIRED Are you deaf or do you have serious difficulty hearing Answer Date of Assessment Author Status No 08/29/2021 9:39 PM CDT Activ e * RETIRED Are you blind or do you have serious difficulty seeing, even when wearing glasses? Answer Date of Assessment Author Status No 08/29/2021 9:39 PM CDT Activ e * Do you have serious difficulty walking or climbing stairs? Answer Date of Assessment Author Status No 08/29/2021 9:39 PM Rossy Colin RN Active * Do you have difficulty dressing or bathing? Answer Date of Assessment Author Status No 08/29/2021 9:39 PM Rossy Colin RN Active * Because of a physical, mental, or emotional condition, do you have difficulty doing errands alone such as visiting a doctor's office or shopping? Answer Date of Assessment Author Status No 08/29/2021 9:39 PM Rossy Colin RN Active documented as of this encounter Mental Status * Because of a physical, mental, or emotional condition, do you have serious difficulty concentrating, remembering, or making decisions? Answer Entry Date Author Status No 08/29/2021 9:39 PM Rossy Colin RN Active documented in this encounter Plan of Treatment Not on file documented as of this encounter Goals Goal Patient Goal Type Associated Problems Recent Progress Patient-Stated? Author Safety Patient/family will have appropriate support at home upon discharge General No Windy Martinez LSW documented as of this encounter Visit Diagnoses Not on filedocumented in this encounter Additional Health Concerns Infection Onset Date Last Indicated Resolved Time COVID-19 Rule Out 10/03/2023 10/03/2023 10/03/2023 5:48 PM CDT COVID-19 Rule Out 03/16/2024 03/16/2024 03/16/2024 6:44 PM EVENT MARKETING COORDINATOR COVID-19 Rule Out 03/17/2024 03/17/2024 03/17/2024 7:08 PM EVENT MARKETING COORDINATOR COVID-19 Rule Out 03/18/2024 03/18/2024 03/18/2024 7:59 PM EVENT MARKETING COORDINATOR documented as of this encounter Care Teams Gaming Dealer Relationship Specialty Start Date End Date Jayson Lake MD [address] [place] [phone] PCP - General FAMILY PRACTICE 12/29/20 Brandt Rosas MD [address] [place] [address] EP It Director CLINICAL CARDIAC ELECTROPHYSIOLOGY 04/07/20 documented as of this encounter
[2024-03-24 22:44] VITALS: BP 150/74; PULSE 98; RESP 28; TEMP 36.5; O2SAT 88
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
--- NOTE | 2024-03-24 23:05 | ECG_ITS ---
Test Date: 2024-03-24 23:14:30 Measurements Intervals [place] Rate: 82 P: 43 NH: 151 QRS: 14 QRSD: 88 T: 41 QT: 363 QTc: 424 Interpretive Statements SINUS RHYTHM POSSIBLE LEFT ATRIAL ENLARGEMENT BORDERLINE ST-T WAVE ABNORMALITY- ANTEROLAT/INF LEADS BASELINE ARTIFACT- I, II, III, AVR, AVL, AVF, V2-V6 BORDERLINE ECG No previous ECG available for comparison Electronically Signed On 03-25-2024 06:21:19 STRAND BUNCHER FINE WIRE by Marcos Cabrera D.O.
--- NOTE | 2024-03-24 23:18 | PC.NURSE ---
COVID PCR obtained and taken to lab
[2024-03-24] MEDS: SODIUM CHLORIDE 0.9% IV 1,000 ML 500 ML IV CONT (23:27)
[2024-03-24] MEDS: IPRATROPIUM 0.5 MG/ALBUTEROL SULFATE 2.5 MG AMPUL.NEB 3 ML INHALATION (23:28)
--- NOTE | 2024-03-24 23:43 | PC.NURSE ---
[facility] [phone]. RT and LAUREN Mann at patient bedside at this time.
[2024-03-24 23:44] LABS: Basophils Absolute Auto 0.01 K/mm3 (0.00-0.10); Basophils Percent Auto 0.2 % (0.0-1.0); Eosinophils Absolute Auto 0.09 K/mm3 (0.02-0.50); Hematocrit 27.8 % (35.0-42.0); Hemoglobin 11.5 g/dL (11.7-13.8); Immature Granulocyte Absolute 0.05 K/mm3 (0.00-0.00); Immature Granulocyte Percent A 1.1 % (0.0-0.0); Lymphocytes Absolute Auto 0.45 K/mm3 (1.10-4.50); Lymphocytes Percent Auto 10.2 % (18.0-42.0); Mean Corpuscular Hemoglobin 34.6 pg (27.0-31.0); Mean Corpuscular Volume 83.7 fL (78.0-102.0); Mean Platelet Volume 10.2 fl (9.2-11.8); Monocytes Absolute Auto 0.27 K/mm3 (0.10-0.90); Monocytes Percent Auto 6.1 % (2.0-11.0); Neutrophils Absolute Auto 3.56 K/mm3 (1.70-7.20); Neutrophils Percent Auto 80.4 % (50.0-70.0); Platelet Count Result 207 K/mm3 (150-420); Red Blood Count 3.32 M/mm3 (4.20-5.40); Red Cell Distribution Width 16.1 % (11.6-14.4); White Blood Count 4.4 K/mm3 (4.8-10.8)
[2024-03-24 23:45] VITALS: PULSE 101; RESP 23; O2SAT 94
[2024-03-24 23:46] LABS: Mean Corpuscular HGB Conc 41.4 g/dL (32-36)
[2024-03-24 23:53] VITALS: PULSE 101; RESP 22; O2SAT 98
[2024-03-24 23:55] LABS: INR 0.9; Prothrombin Time 10.5 Seconds (9.50-12.1)
[2024-03-24 23:58] LABS: Base Excess ABG -0.8 mmol/L (0-2); HCO3 ABG 23.1 mmol/L (23-29); Modified Allen's Test Pass; Oxygen Content ABG 16.8 %vol (16.0-22.0); Oxyhemoglobin 97.4 % (94-100); PCO2 ABG 35.3 mmHg (35-45); PO2 ABG 129.1 mmHg (75-85); Site Drawn RIGHT RADIAL; pH ABG 7.43 (7.35-7.45)
[2024-03-24 23:59] LABS: Device OTHER DEVICE
[2024-03-25 00:02] LABS: Alanine Aminotransferase 29 U/L (14-59); Albumin Level 3.7 g/dL (3.4-5.0); Alkaline Phosphatase 130 U/L (46-116); Anion Gap 13 mmol/L (4-12); Aspartate Amino Transferase 34 U/L (15-37); Bilirubin,Total 0.7 mg/dL (0.00-1.00); Blood Urea Nitrogen 8 mg/dL (7-18); Calcium 8.5 mg/dL (8.5-10.1); Carbon Dioxide 25 mmol/L (21-32); Chloride 91 mmol/L (98-108); Estimated CRCL calculation 46 ml/min; Estimated Glomerular Filt Rate 54; Glucose 134 mg/dL (70-99); Magnesium 1.7 mg/dL (1.8-2.4); NT Pro B Type Natriuretic Pept 164 pg/mL (0-450); Osmolality Calculated 268 mOsm/kg (285-295); Potassium 3.2 mmol/L (3.5-5.1); Sodium 129 mmol/L (136-145); Total Protein 7.2 g/dL (6.4-8.2); Troponin I 13.2 ng/L (0.00-60.4)
[2024-03-25 00:03] LABS: Lipase 78 U/L (16-77)
[2024-03-25 00:20] LABS: SARS-CoV-2 RNA PCR Negative (Negative)
[2024-03-25 00:31] LABS: Influenza A QL RT-PCR Negative (Negative); Influenza B QL RT-PCR Negative (Negative); RSV RNA, RT-PCR Negative (Negative)
--- NOTE | 2024-03-25 00:45 | PC.NURSE ---
pt ambulated to bathroom for urine specimen
[2024-03-25 01:06] LABS: Add Urine Microscopic? YES; Appearance Urine Clear (Clear); Bilirubin Urine Negative (Negative); Blood Urine Trace-intact (Negative); Color Urine Yellow (Yellow); Glucose Urine UA Negative (Negative); Ketones Urine 2+ (Negative); Leukocyte Esterase Ur Negative LEU/UL (Negative); Nitrate Urine Negative (Negative); Protein Urine Trace (Negative); Urobilinogen Urine 0.2 mg/dL (0.2-1.0)
[2024-03-25 01:08] LABS: Bacteria Urine Trace /hpf; RBC Urine 0-2 /hpf (0-2); Squamous Epithelial Cell Urine Rare /hpf (Few); WBC Urine 0-3 /hpf (0-3)
--- NOTE | 2024-03-25 02:13 | PC.NURSE ---
RENETTA Schmitz at patient bedside at this time, updating patient on results and plan of care.
--- NOTE | 2024-03-27 13:14 | PC.NURSE ---
Preliminary blood culture, no growth noted
== END 2024-03-25 03:25 | disposition home or self-care (01) ==
PROVIDERS: Emergency Provider Emergency Medicine; PCP Family Medicine
DX: E87.1 Hypo-osmolality and hyponatremia (principal); E87.6 Hypokalemia; J44.1 Chronic obstructive pulmonary disease with (acute) exacerbation; E78.5 Hyperlipidemia, unspecified; I10 Essential (primary) hypertension; I48.91 Unspecified atrial fibrillation; E11.9 Type 2 diabetes mellitus without complications; Z86.73 Personal history of transient ischemic attack (TIA), and cerebral infarction without residual deficits; Z99.81 Dependence on supplemental oxygen; Z87.891 Personal history of nicotine dependence; Z20.822 Contact with and (suspected) exposure to COVID-19
CPT/HCPCS: 36415; 36600; 71260; 74177; 80053; 81001; 82805; 83605; 83690; 83735; 83880; 84484; 85018; 85025; 85610; 85730; 87040; 87637; 93005; 94640; 96361; 96374; 99284; J7030; Q9967